=== PATIENT | male | born 1940 | race Caucasian/White ===

== ENCOUNTER 2016-10-01 09:32 | Inpatient (IN) ==
[2016-10-01] MEDS ORDERED: Ondansetron 4 MG/2 ML VIAL IV ONE (09:40)
[2016-10-01] MEDS ORDERED: *HR* Morphine 2 MG/ML SYRINGE IV ONE (09:40)
[2016-10-01] MEDS ORDERED: Aspirin 81 MG TAB.CHEW PO STA (09:41)
[2016-10-01] MEDS ORDERED: Nitroglycerin 0.4 MG TAB.SUBL SL ONE (09:46)
[2016-10-01 10:00] LABS: Basophils # 0.1 K/mcL (0.0-0.2); Basophils % 0.7 %; Eosinophils # 0.1 K/mcL (0.0-0.6); Eosinophils % 0.5 %; Hematocrit 41.2 % (37.5-50.1); Hemoglobin 13.9 g/dL (12.9-16.9); Immature Granulocytes % 1.1 % (0-4); Lymphocytes # 1.5 K/mcL (0.6-4.6); Lymphocytes % 13.1 %; Mean Corpuscular HGB Conc 33.7 g/dL (31.6-35.5); Mean Corpuscular Hemoglobin 28.1 pg (28.0-33.3); Mean Corpuscular Volume 83.4 fL (83.0-100.0); Monocytes # 0.8 K/mcL (0.0-1.3); Monocytes % 6.4 %; Neutrophils # 9.2 K/mcL (1.6-8.9); Platelet Count 398 K/mcL (140-400); Red Blood Count 4.94 M/mcL (4.19-5.50); Red Cell Distribution Width 13.6 % (11.5-14.5); Segmented Neutrophils % 78.2 %
[2016-10-01] MEDS ORDERED: Heparin 25,000 UNIT/500 ML D5W 25,000 UNIT/500 ML MLS IVC SCH (10:00)
[2016-10-01] MEDS ORDERED: *HR* Heparin 5,000 UNIT/ML VIAL IVP ONE (10:00)
[2016-10-01] MEDS ORDERED: *HR* Heparin 5,000 UNIT/ML VIAL IVP PRN ×2 (10:00)
--- NOTE | 2016-10-01 10:00 | Emergency Department Note ---
Disposition Clinical Impression: NSTEMI (non-ST elevated myocardial infarction) Disposition: Admitted As Inpatient Condition: Critical Referrals: NO,PCP [Primary Care Provider] - Forms: ED Satisfaction Letter Chest Pain HPI - General Chief Complaint: ED Chest Pain Stated Complaint: chest pain, SOB Time Seen by Provider: 10/01/16 09:33 Source: patient, family Limitations: no limitations Vital Signs Reviewed: Yes Nursing Notes Reviewed: Yes - History of Present Illness Pt complaint: chest pain Onset (ago): hour(s) (12) Duration: intermittent Onset: during rest Pain Location: substernal Severity scale (1-10): 8 Quality: heaviness Pain Radiation: LUE, neck, jaw/teeth Improves with: nothing Worsens with: nothing Associated symptoms: Reports: dyspnea Treatments prior to arrival chest pain: aspirin - Related Data Allergies Allergy/AdvReac Type Severity Reaction Status Date / Time No Known Allergies Allergy Verified 10/01/16 09:35 All systems ED: reviewed and negative except as stated. Constitutional: Denies: fever Respiratory: Reports: dyspnea Gastrointestinal: Denies: vomiting Chest Pain PMH - Past Medical History Medical history: Reports: aortic aneurysm, COPD, hypertension Psychiatric history: Reports: no psych history - Social History Smoking Status: Former smoker Alcohol use: Reports: none Physical Exam - General Limitations: no limitations General appearance: alert, in distress - Head Head exam: atraumatic, normocephalic, normal inspection - Eye Eye exam: Present: normal appearance, PERRL, EOMI - ENT ENT exam: normal exam, normal oropharynx, mucous membranes moist - Neck Neck exam: Present: normal inspection, full ROM, trachea midline - Chest Chest inspection: Present: normal inspection - Respiratory Respiratory exam: Present: accessory muscle use, prolonged expiratory phase - Cardiovascular Cardiovascular exam: Present: regular rate, normal rhythm, normal heart sounds - Abdominal Exam Abdominal exam: Present: soft, Non-Tender. Absent: tenderness, distention, guarding, rebound, rigidity - Back Exam Back exam: Present: normal inspection, full ROM. Absent: tenderness - Neurological Exam Neurological exam: Present: alert, oriented X3 - Psychiatric Psychiatric exam: Present: normal affect, normal mood - Skin Skin exam: Present: warm, dry, intact, normal color Course - Reevaluation(s) Reevaluation #1: Discussed with taxicab coordinator Dr. Hurd she would like us to repeat the EKG in 30 minutes Time: 10:00 Reevaluation #2: Dr. Crystal Hurd paged to update on positive troponin Time: 10:20 Reevaluation #3: PAIN IMPROVED STILL IN THE LEFT SHOULDER Time: 10:31 - Consultations Consultation #1: PATIENT WILL BE GOING TO THE [facility]CH[facility] Time: 10:40 Vital Signs Temperature 97.7 F 10/01/16 09:33 Pulse Rate 98 10/01/16 09:33 Respiratory Rate 20 10/01/16 09:33 Blood Pressure 152/93 10/01/16 09:33 O2 Sat by Pulse Oximetry 96 10/01/16 09:33 Temperature 97.7 F 10/01/16 09:33 Pulse Rate 98 10/01/16 10:35 Respiratory Rate 16 10/01/16 10:35 Blood Pressure 99/84 10/01/16 10:35 O2 Sat by Pulse Oximetry 97 10/01/16 10:35 Oxygen Delivery Oxygen Delivery Aerosol Mask Chest Pain - Differential Diagnosis Likely: stable angina, unstable angina pectoris, atypical chest pain, st elevation myocardial infraction, chest pain - Medical Records Medical records reviewed: Yes I reviewed the patient's medical records. - Lab Data Result diagrams: 10/01/16 05:51 10/01/16 05:51 Lab Results 10/01/16 10/01/16 10/01/16 Range/Units 05:51 05:51 05:51 WBC (4.3-11.1) K/mcL RBC (4.19-5.50) M/mcL Hgb (12.9-16.9) g/dL Hct (37.5-50.1) % MCV (83.0-100.0) fL MCH (28.0-33.3) pg MCHC (31.6-35.5) g/dL RDW (11.5-14.5) % Plt Count (140-400) K/mcL MPV (9.4-12.4) fL Immature Gran % (0-4) % Seg Neutrophils % % Lymphocytes % % Monocytes % % Eosinophils % % Basophils % % Neutrophils # (1.6-8.9) K/mcL Lymphocytes # (0.6-4.6) K/mcL Monocytes # (0.0-1.3) K/mcL Eosinophils # (0.0-0.6) K/mcL Basophils # (0.0-0.2) K/mcL PT 12.6 H (9.4-12.1) Seconds INR 1.2 APTT 28.8 (26.0-36.0) Seconds Sodium (136-145) mEq/L Potassium (3.5-4.5) mEq/L Chloride (98-109) mEq/L Carbon Dioxide (19-29) mEq/L BUN (8-26) mg/dL Creatinine (0.72-1.25) mg/dL Est GFR ( Amer) (> 60) Est GFR (Non-Af Amer) (> 60) BUN/Creatinine Ratio (6-26) Glucose (70-99) mg/dL Calculated Osmolality (280-300) Calcium (8.6-10.8) mg/dL Total Bilirubin 0.5 (0.2-1.2) mg/dL Direct Bilirubin 0.2 (0.0-0.5) mg/dL Indirect Bilirubin 0.3 (0.0-1.2) mg/dL AST 31 (5-34) Units/L ALT 13 (0-55) Units/L Alkaline Phosphatase 64 (38-126) Units/L Troponin I (0-0.03) ng/mL B-Natriuretic Peptide 550 H (0-100) pg/mL Serum Total Protein 6.7 (6.0-8.3) g/dL Albumin 2.8 L (3.5-5.0) g/dL Globulin 3.9 H (2.4-3.5) g/dL Albumin/Globulin Ratio 0.7 L (1.1-2.2) 10/01/16 10/01/16 10/01/16 Range/Units 05:51 05:51 05:51 WBC 11.7 H (4.3-11.1) K/mcL RBC 4.94 (4.19-5.50) M/mcL Hgb 13.9 (12.9-16.9) g/dL Hct 41.2 (37.5-50.1) % MCV 83.4 (83.0-100.0) fL MCH 28.1 (28.0-33.3) pg MCHC 33.7 (31.6-35.5) g/dL RDW 13.6 (11.5-14.5) % Plt Count 398 (140-400) K/mcL MPV 9.0 L (9.4-12.4) fL Immature Gran % 1.1 (0-4) % Seg Neutrophils % 78.2 % Lymphocytes % 13.1 % Monocytes % 6.4 % Eosinophils % 0.5 % Basophils % 0.7 % Neutrophils # 9.2 H (1.6-8.9) K/mcL Lymphocytes # 1.5 (0.6-4.6) K/mcL Monocytes # 0.8 (0.0-1.3) K/mcL Eosinophils # 0.1 (0.0-0.6) K/mcL Basophils # 0.1 (0.0-0.2) K/mcL PT (9.4-12.1) Seconds INR APTT (26.0-36.0) Seconds Sodium 133 L (136-145) mEq/L Potassium 4.0 (3.5-4.5) mEq/L Chloride 96 L (98-109) mEq/L Carbon Dioxide 26 (19-29) mEq/L BUN 9 (8-26) mg/dL Creatinine 0.70 L (0.72-1.25) mg/dL Est GFR ( Amer) > 60 (> 60) Est GFR (Non-Af Amer) > 60 (> 60) BUN/Creatinine Ratio 13 (6-26) Glucose 97 (70-99) mg/dL Calculated Osmolality 275 L (280-300) Calcium 9.0 (8.6-10.8) mg/dL Total Bilirubin (0.2-1.2) mg/dL Direct Bilirubin (0.0-0.5) mg/dL Indirect Bilirubin (0.0-1.2) mg/dL AST (5-34) Units/L ALT (0-55) Units/L Alkaline Phosphatase (38-126) Units/L Troponin I 3.34 H* (0-0.03) ng/mL B-Natriuretic Peptide (0-100) pg/mL Serum Total Protein (6.0-8.3) g/dL Albumin (3.5-5.0) g/dL Globulin (2.4-3.5) g/dL Albumin/Globulin Ratio (1.1-2.2) - Radiology Data Radiology results reviewed: Yes I reviewed the patient's radiology results. - EKG Data EKG attestation: Yes I reviewed and interpreted this EKG. EKG shows normal: sinus rhythm Rate: tachycardia (104) Rhythm: NSR Carroll/QRS: normal ST segment elevation in: v1, v2, v3 ST segment depression in: II, III, aVF, v4, v5, v6 Interpretation: other (I spoke with Dr. Crystal Hurd after obtaining the EKG she states there is ischemic changes but not ST elevation criteria for immediate catheterization will repeat EKG blood work and color back with results ) Critical Care Time Critical Care Time: Yes Total Critical Care Time: 40 Attestation: Critical care performed: Time is exclusive of separately billable procedures. Time includes: direct patient care, patient reassessment, coordination of patient care, interpretation of data (laboratory data, radiology data, and respiratory data), review of patient's medical records, medical consultation and documentation of patient care. Procedures included in critical care time: Procedures excluded from critical care time:
[2016-10-01] MEDS ORDERED: Nitroglycerin 0.4 MG TAB.SUBL SL PRN (10:01)
[2016-10-01] MEDS ORDERED: Ipratropium/Albuterol Neb 3 ML IH ONE (10:02)
[2016-10-01 10:03] LABS: INR 1.2; Prothrombin Time 12.6 Seconds (9.4-12.1)
[2016-10-01 10:06] LABS: Activated Partial Thrombo Time 28.8 Seconds (26.0-36.0)
[2016-10-01 10:12] LABS: Albumin 2.8 g/dL (3.5-5.0); Albumin/Globulin Ratio 0.7 (1.1-2.2); Bilirubin,Direct 0.2 mg/dL (0.0-0.5); Bilirubin,Indirect 0.3 mg/dL (0.0-1.2); Bilirubin,Total 0.5 mg/dL (0.2-1.2); Globulin 3.9 g/dL (2.4-3.5); Total Protein 6.7 g/dL (6.0-8.3)
[2016-10-01 10:13] LABS: BUN/Creatinine Ratio 13 (6-26); Blood Urea Nitrogen 9 mg/dL (8-26); Carbon Dioxide 26 mEq/L (19-29); Chloride 96 mEq/L (98-109); Glucose 97 mg/dL (70-99); Osmolality,Calculated 275 (280-300); Sodium 133 mEq/L (136-145); eGFR For African Americans > 60 (> 60); eGFR For Non-African Americans > 60 (> 60)
[2016-10-01] MEDS ORDERED: *HR* Ticagrelor 90 MG TABLET PO ONE (10:41)
[2016-10-01] MEDS ORDERED: 0.9 % Sodium Chloride 1,000 ML ONE ×2 (11:00→11:57)
--- NOTE | 2016-10-01 11:05 | Pre-Sedation Evaluation ---
Pre-sedation evaluation - Pre-sedation checklist Date of procedure: 10/01/16 Procedure: [facility] Recent Vitals: Last Vital Signs Temp 97.7 F 10/01/16 09:33 Pulse 93 10/01/16 10:49 Resp 16 10/01/16 10:52 BP 132/70 10/01/16 10:52 Pulse Ox 97 10/01/16 10:49 H&P (including ROS) documented in medical record: Yes Previous reaction to sedatives/anesthetics: No Dietary Status: unknown Airway Assessment: Patient can open mouth completely, TMJ function normal, Micrognathia (under-bite, receding chin) absent, Neck with adequate range of motion Dentition: poor dentition Possible difficult airway: No ASA Classification *see protocol: [id number] to any of the above to indicate emergent Plan of Care: Pt appropriate candidate for procedure/moderate/conscious sedation , Risks/benefits of procedure/sedation discussed w/ patient/family, If not NPO; Risk of intake outweiged by necessity to perform procedure
--- NOTE | 2016-10-01 11:10 | Cardiology Consult Note ---
Date of Encounter: 10/01/16 Time of Encounter: 11:06 Assessment and Plan (1) NSTEMI (non-ST elevated myocardial infarction) Current Visit: Yes Status: Acute Troponin 3.34 and EKG with ischemic changes. Trend troponins. Heparin gtt started. Start ASA, Statin, BB. Active chest and left shoulder pain. Nitro temporarily relieved chest pain, but it soon returned and shoulder pain persisted. Urgent LHC recommended for ongoing symptoms. R/B/A discussed and pt agrees to proceed. Check echo to evaluate structure and function. Check lipid panel. Further recommendations to follow once LHC and echo are completed/result. (2) Dyspnea Current Visit: Yes Status: Acute Likely multifactoral. Known COPD (prior tobacco abuse). In setting of NSTEMI. Suspect CHF component given orthopnea, PND. CXR with questionable trace bilateral pleural effusions. BNP 550. CXR also showed opacity in right upper lobe, which could reflect PNA. Check echo to evaluate structure and function. Qualifiers: Dyspnea type: unspecified Qualified Code(s): R06.00 - Dyspnea, unspecified (3) Essential hypertension Current Visit: Yes Status: Acute Start BB. Continue to monitor/adjust as necessary. (4) History of AAA (abdominal aortic aneurysm) repair Current Visit: Yes Status: Chronic Hx of AAA [place] [address] Daniels. No recent follow-up. Discussion w patient/family: The assessment and plan as outlined above was discussed with the patient and/or family members who expressed understanding and agreement. All questions were answered. Thank you for involving us in the care of your patient. Please call with any questions. I have discussed all the above with Dr. Crystal Hurd and will make changes as necessary. History of Present Illness Consult date: 10/01/16 Requesting physician: Shawn Hitchcock Consult reason: NSTEMI Chief complaint: Chest pain, dyspnea History of present illness: Mr. Simms is a 75 year old male with PMH of AAA with repair, COPD, former tobacco abuse, HTN that presented to ED for chest pain and dyspnea. Symptoms initially started 3-4 nights ago, occurring in the evening. This morning at 3AM symptoms worsened. He reports chest heaviness that radiated to both arms and into his neck and jaw. He reports dyspnea, orthopnea, cough that is occasionally productive. He was given nitro in the ED that initially helped with chest pain, but left shoulder pain persisted. Troponin found to be 3.34. BNP 550. EKG showed ischemic changes throughout, but no significant ST elevation. Diagnosed as NSTEMI. During transport to laboratory chemist, chest pain began again. He denies prior cardiac hx. Past Med Surg Social Fam HX - Past Medical History Medical history: aortic aneurysm, COPD, hypertension Psychiatric history: no psych history - Past Surgical History Surgical History: vascular surgery (AAA repair), other (cleft palate surgery) - Social History Smoking Status: Former smoker Smokeless Tobacco Status: No Alcohol use: none Medications and Allergies Allergies No Known Allergies Allergy (Verified 10/01/16 09:35) All Systems Review: A 10-system review of systems was performed and is negative for pertinent findings except as documented above in the HPI. - Cardiovascular Cardiovascular: as per HPI, chest pain at rest, chest pain with exertion, dyspnea at rest, dyspnea on exertion, radiating jaw, neck or arm pain, orthopnea , paroxysmal nocturnal dyspnea - Respiratory Respiratory: cough, dyspnea Physical Examination Vital Signs, Last 4 Hours Resp BP 10/01/16 10:52 16 132/70 Vital Signs Temp Pulse Resp BP Pulse Ox 10/01/16 10:52 16 132/70 10/01/16 10:49 93 18 132/70 97 10/01/16 10:35 98 16 99/84 97 10/01/16 10:22 20 98 10/01/16 09:39 98 10/01/16 09:33 97.7 F 98 20 152/93 96 Intake and Output 09/30/16 10/01/16 10/01/16 23:59 07:59 15:59 Other: Weight 67.585 kg Patient Weight 10/01/16 23:59 Weight 67.585 kg General: Conversant HEENT: Atraumatic, Normocephaly, Mucus Membranes Moist Neck: Normal carotid pulses Cardiac: Reg Rate and Rhythm, Normal S1 and S2, No Murmur Lungs: Other (diminished, coarse) Neuro: Alert and responsive, No focal deficits noted Abdomen: Soft, Non-Tender Skin: No rashes noted on visualized skin Musculoskeletal: No Chest Wall Tenderness Extremities: No Clubbing, No Cyanosis, No Edema, Normal Pulses Results 10/01/16 05:51 10/01/16 05:51 Short CBC 10/01/16 Range/Units 05:51 WBC 11.7 H (4.3-11.1) K/mcL Hgb 13.9 (12.9-16.9) g/dL Hct 41.2 (37.5-50.1) % Plt Count 398 (140-400) K/mcL Neutrophils # 9.2 H (1.6-8.9) K/mcL BMP 10/01/16 Range/Units 05:51 Sodium 133 L (136-145) mEq/L Potassium 4.0 (3.5-4.5) mEq/L Chloride 96 L (98-109) mEq/L Carbon Dioxide 26 (19-29) mEq/L BUN 9 (8-26) mg/dL Creatinine 0.70 L (0.72-1.25) mg/dL Glucose 97 (70-99) mg/dL Calcium 9.0 (8.6-10.8) mg/dL Cardiac Enzymes 10/01/16 Range/Units 05:51 Troponin I 3.34 H* (0-0.03) ng/mL Liver Function 10/01/16 Range/Units 05:51 Total Bilirubin 0.5 (0.2-1.2) mg/dL Direct Bilirubin 0.2 (0.0-0.5) mg/dL AST 31 (5-34) Units/L ALT 13 (0-55) Units/L Alkaline Phosphatase 64 (38-126) Units/L Albumin 2.8 L (3.5-5.0) g/dL Impressions Chest X-Ray 10/01/16 09:33 IMPRESSION: Patchy opacity in the right upper lobe, which may reflect pneumonia in the appropriate clinical setting. Given underlying emphysematous changes, this could also represent areas scarring. Questionable trace bilateral pleural effusions. D/ / Lisa Carreno MD / Lisa Carreno MD Interpreting Provider: Lisa Carreno MD Active Medications Heparin Sodium (Porcine) (Heparin) 4,000 unit IVP Q6HR PRN PRN Reason: SEE COMMENTS Stop: 04/02/17 10:01 Heparin Sodium (Porcine) (Heparin) 2,000 unit 30 unit/kg (2000 unit) IVP Q6H PRN PRN Reason: SEE COMMENTS Stop: 04/02/17 10:01 Heparin Sodium/Dextrose (Heparin 25,000 Unit/500 Ml D5w) 25,000 unit in 500 mls @ 16.22 mls/hr IVC .Q24H ASHWINI; 12 UNIT/KG/HR PRN Reason: Protocol Stop: 04/02/17 10:01 Last Admin: 10/01/16 10:29 Dose: 12 unit/kg/hr, 16.22 mls/hr Nitroglycerin (Nitroglycerin) 0.4 mg SL Q5MIN PRN PRN Reason: Chest Pain Stop: 04/02/17 10:02 - Imaging and Cardiology Chest Xray: report reviewed Cardiac cath: pending - EKG Interpretation EKG results cardiology: personally reviewed (SR, ischemic changes noted) Consult Discharge Plan - Plan Referrals: Mauro oJe MD [Primary Care Provider] -
[2016-10-01] MEDS ORDERED: *HR* FentaNYL (PF) 100 MCG/2 ML VIAL ONE (11:42)
[2016-10-01] MEDS ORDERED: *HR* Midazolam HCl 2 MG/2 ML VIAL ONE (11:42)
[2016-10-01] MEDS ORDERED: *HR* Heparin 10,000 UNIT/10 ML VIAL ONE (11:57)
[2016-10-01] MEDS ORDERED: Heparin 1,000 UNITS/500 mL NS 500 ML ONE (11:57)
[2016-10-01] MEDS ORDERED: Nitroglycerin 1,000 MCG/10 ML VIAL IV ONE (11:58)
--- NOTE | 2016-10-01 12:08 | Invasive Diagnostic Lab Proc ---
Name: Duong Simms Date of Study: 10/01/2016 Date: 1940 Ht: 70.9in Medical Record#: [id number] Age: 75 Wt: 149.03lb Gender: Male BSA: 1.86 Order #: [id number] BMI: 20.86 Physicians Procedure Physician: Crystal Hurd MD, [facility] Referring MD: Referring MD: Staff Name Position Time In Sites, Gwendolyn RT (R) Scrub 11:13 AM Jazzy Christensen RN Monitor 11:13 AM Derik Osborne RN Wine Bottle Inspector 11:13 AM Indications Indication Non-Stemi Procedures Performed Procedure L HRT ARTERY/VENTRICLE ANGIO PRQ CARD REVASC OK 1 VSL Pre-Procedure Checklist Informed consent is complete signed and on chart. H\\T\\P is on chart. ID band is on and ID verified with patient. Patient NPO for procedure The procedure was described for the patient and questions were answered. Blood Pressure: 128/86 ECG is on chart. Rhythm: Sinus Arrhythmia Plan of Care Patient will tolerate the procedure without complications. Adequate level of comfort will be maintained. Hemodynamics will remain stable Patient will recover from procedure without complications. Respiratory function will be maintained. Cardiac rhythm will remain stable. Patient temperature will be maintained. Patient and/or family have verbalized understanding of the procedure. Patient Education Chief Complaint/Reason for Test: Cardiac Cath Developmental Category: Geriatric (65+ years) Developmentally Appropriate for Age: Yes Learning Barriers: None Education Needs: Procedure Education Method: Verbal Information Taught: Cardiac Cath Educational Evaluation: Able to repeat information Intravenous Access Time IV Size Location DC'd Fluid/Drip Rate Units RN 10:57 AM 18g 1 07/28" Patent On Arrival Lt Wrist 0.9NaCl 25 ml/hr Derik Osborne RN Allergies No Known Allergies Vital Signs Time BP (mmHg) HR (bpm) O2 Sat. RR (bpm) LOC 11:11 AM / % 5 = Fully awake and oriented or at pre-proc level 11:11 AM / % 4 = Oriented but drowsy 11:26 AM / % 4 = Oriented but drowsy 11:06 AM 128 / 86 137 94 % 26 11:11 AM 111 / 72 97 96 % 16 11:16 AM 115 / 59 91 98 % 18 11:21 AM 121 / 75 96 99 % 16 11:23 AM 119 / 73 86 98 % 14 11:26 AM 90 / 49 91 95 % 15 11:27 AM 79 / 49 94 94 % 15 11:28 AM 86 / 55 94 93 % 15 11:29 AM 94 / 50 88 93 % 17 11:31 AM 96 / 43 93 93 % 16 11:34 AM 104 / 62 89 94 % 18 11:36 AM 101 / 61 95 94 % 16 11:41 AM 113 / 69 91 % 16 Procedural Medications Time Medication Dose Units Method Given By 11:10 AM Oxygen 2 L/min nasal cannula Derik Osborne RN 11:11 AM Lidocaine 16 ml Subcutaneous Crystal Hurd MD, [facility] 11:12 AM Versed 2 mg Intravenous Derik Osborne RN 11:18 AM Fentanyl 50 mcg Intravenous Derik Osborne RN 11:21 AM Heparin 2000 units Intravenous Derik Osborne RN 11:24 AM Nitroglycerin 200 mcg Intracoronary Crystal Hurd MD, [facility] 11:30 AM Nitroglycerin 200 mcg Intracoronary Crystal Hurd MD, [facility] ASA Classification: CLASS II- Mild systemic disease (i.e. well-controlled diabetes, hypertension, asthma, cigarette smoking) Alonso Score Preprocedure Postprocedure Activity 2- Moves 4 extremities sustained head lift Activity 2- Moves 4 extremities sustained head lift Circulation 2- SBP +/= 20 points of pre-anesthetic level Circulation 2- SBP +/= 20 points of pre-anesthetic level Consciousness 2- Awake and alert oriented x 3 Consciousness 2- Awake and alert oriented x 3 O2 Saturation 2- Able to maintain O2 satruation of 92% on room air O2 Saturation 2- Able to maintain O2 satruation of 92% on room air Respiratory 2- Able to deep breathe and cough well Respiratory 2- Able to deep breathe and cough well Total Score 10 Total Score 10 Contrast Agent: Isovue Diagnostic Contrast: 125 ml Total Contrast: 125 ml Fluoro Dose: 280 mGy Activated Clotting Time Time Seconds to Clot 11:20 AM 180 11:50 AM 259 Procedure Log Time Note Enter By 10:53 AM CathStat 11:05 AM Case Start 11:05 AM Vitals capture started with the following parameters, Patient=Adult, Interval=5 min, Initial Vuxgsaph=375 mmHg, Deflation Rate=5 mmHg, Cuff placed on Left Arm 11:06 AM VS=598 bpm, WHSQ=431/86 mmhg, SpO2=94.0 %, Resp=26 B/min, Comment=Sinus Rhythm 11:09 AM Recorded ECG: HR=91 Condition=Condition 1 11:10 AM 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 well-controlled diabetes, hypertension, asthma, cigarette smoking) [facility] 11:10 Meet and ross completed [facility] 11:10 AM Sign in performed according to hospital policy. [facility] 11:10 Procedure start 11: [facility] : AM Time: 11: Oxygen on at 2 L/min per nasal cannula by Derik Osborne RN [facility] : AM Time: 11:10 Patient comfortable and pain free: Yes [facility] : AM Time: :LOC: 5 = Fully awake and oriented or at pre-proc level [facility] : HR=97 bpm, NLIB=360/72 mmhg, SpO2=96.0 %, Resp=16 B/min, Comment=Sinus Rhythm 11:11 AM Clinical Presentation: Non-STEMI [facility] : Time out performed according to hospital policy [facility] : AM Time: : 16 ml to Subcutaneous Given by Crystal Hurd MD, [facility] : AM Time: : 16 ml to 2% Lidocaine Subcutaneous Given by Crystal Hurd MD, [facility] : AM Access obtained by percutaneous puncture. 5Fr 10cm Terumo [place] sheath placed in right Femoral artery. [id number] [facility] 11: AM Time: :12 Versed 2 mg Intravenous Given by Derik Osborne RN [facility] : AM Pressure channel 1 zero failed. 11:12 AM 5Fr FL 4 catheter inserted over the wire [facility] :13 AM Gwendolyn Rendon RT (R) Position: Scrub Time in: : [facility] 11:13 AM Jazzy Christensen RN Position: Monitor [facility]: [facility] AM Derik Osborne RN Position: Wine Bottle Inspector [facility]: 11:13 [facility] 11:13 AM Recorded Pressure: Ao, HR=89, Condition=Condition 1 (Aorta) Ao 88/60/74 11:13 AM Case Delayed No [facility] 11:14 AM LCA angiography performed in multiple views. [facility] 11:15 AM PCI Status Urgent [facility] 11:15 AM Inflation device was opened. [facility] 11:15 AM [facility]atheter [facility] 11:15 AM 5Fr FR 4 catheter inserted over the wire [facility] 11:16 AM Coronary Dominance: right [facility] 11:16 AM RCA angiography performed in multiple views. [facility] 11:16 AM HR=91 bpm, HBIM=222/59 mmhg, SpO2=98.0 %, Resp=18 B/min, Comment=Sinus Rhythm 11:16 AM Catheter removed [facility] 11:17 AM Lesion found in Proximal LAD. Pre Stenosis: 99 Pre KODY Flow: 1 [facility] 11:17 AM Sheath exchanged for a 6 Fr 11 cm Cordis Cindy sheath [id number] [facility] 11:17 AM 6Fr XB LAD 3.5 [place] Bright-Tip guide catheter was used to cannulate the PCI vessel successfully. reused? No [facility] 11:17 AM .014 Prowater 180cm guide wire across target lesion- successful. reused? No [facility] 11:18 AM 2.5 mm x 15 mm Emerge Monorail balloon across target lesion- successful. reused? No [facility] 11:18 AM Time: 11:18 Fentanyl 50 mcg Intravenous Given by Derik Osborne RN [facility] 11:18 AM act drawn [facility] 11:18 AM PCI Status Urgent [facility] 11:18 AM PCI Indication: PCI for high risk Non-STEMI or unstable angina [facility] 11:19 AM Recorded Pressure: Ao, HR=97, Condition=Condition 1 (Aorta) Ao 129/68/95 11:20 AM At 11:20 the ACT was 180 seconds. [facility] 11:21 AM Time: 11:21 Heparin 2000 units Intravenous Given by Derik Osborne RN [facility] 11:21 AM HR=96 bpm, HFIX=832/75 mmhg, SpO2=99.0 %, Resp=16 B/min, Comment=Sinus Rhythm 11:21 AM Recorded Pressure: Ao, HR=91, Condition=Condition 1 (Aorta) Ao 110/66/86 11:22 AM Balloon inflated @ 8 angela for 20 seconds [facility] 11: AM Recorded Pressure: Ao, HR=93, Condition=Condition 1 (Aorta) Ao 100/67/83 11: AM Balloon inflated @ 10 angela for 20 seconds [facility] 11: AM NIBP STAT measurement started. 11:23 AM HR=86 bpm, NBUG=577/73 mmhg, SpO2=98.0 %, Resp=14 B/min, Comment=Sinus Rhythm 11: AM Time: 11:24 Nitroglycerin 200 mcg Intracoronary Given by Crystal Hurd MD, [facility] 11: AM Time: 11:11 Patient comfortable and pain free: Yes [facility] : AM Time: 11:11LOC: 4 = Oriented but drowsy [facility] 11: AM HR=91 bpm, NIBP=90/49 mmhg, SpO2=95.0 %, Resp=15 B/min, Comment=Sinus Rhythm 11: AM NIBP STAT measurement started. 11:27 AM HR=94 bpm, NIBP=79/49 mmhg, SpO2=94.0 %, Resp=15 B/min, Comment=Sinus Rhythm 11: AM Balloon catheter removed intact. [facility] 11: AM 3.5mm x 20mm Synergy drug-eluting stent across target lesion- successful Lot #[id number] [facility] 11:28 AM NIBP STAT measurement started. 11:28 AM Recorded Pressure: Ao, HR=88, Condition=Condition 1 (Aorta) Ao 72/54/63 11:28 AM HR=94 bpm, NIBP=86/55 mmhg, SpO2=93.0 %, Resp=15 B/min, Comment=Sinus Rhythm 11:28 AM Stent deployed @ 16 angela for 30 seconds [facility] 11:29 AM NIBP STAT measurement started. 11:29 AM Stent balloon reinflated @ 20 angela for 15 seconds [facility] 11:29 AM HR=88 bpm, NIBP=94/50 mmhg, SpO2=93.0 %, Resp=17 B/min, Comment=Sinus Rhythm 11:29 AM Recorded Pressure: Ao, HR=88, Condition=Condition 1 (Aorta) Ao 78/52/65 11:30 AM Time: 11:30 Nitroglycerin 200 mcg Intracoronary Given by Crystal Hurd MD, [facility] 11:31 AM HR=93 bpm, NIBP=96/43 mmhg, SpO2=93.0 %, Resp=16 B/min, Comment=Sinus Rhythm 11:31 AM Guide catheter removed intact. [facility] 11:32 AM Stent delivery system removed intact. [facility] 11:32 AM Guide wire removed intact. [facility] 11:33 AM 5Fr Pigtail catheter inserted over the wire [facility] 11:33 AM Pressure channel 1 zeroed. 11:33 AM Recorded Pressure: LV, HR=94, Condition=Condition 1 (Left Ventricle) LV 80/18/24 11:33 AM Catheter selectively placed in left ventricle [facility] 11:33 AM Bolus angiogram of left Ventricle complete: 8 ml/sec for a total of 24 mls [facility] 11:34 AM Recorded Pressure: LV, Ao, HR=91, Condition=Condition 1 (Left Ventricle) LV 89/35/48, (Aorta) Ao 87/63/75 11:34 AM NIBP STAT measurement started. 11:34 AM Catheter removed [facility] 11:34 AM Bolus angiogram of right Femoral complete: 4 ml/sec for a total of 7 mls [facility] 11:34 AM HR=89 bpm, ZPKJ=657/62 mmhg, SpO2=94.0 %, Resp=18 B/min, Comment=Sinus Rhythm 11:35 AM Procedure completed at 11:35 [facility] 11:36 AM HR=95 bpm, ZVGY=344/61 mmhg, SpO2=94.0 %, Resp=16 B/min, Comment=Sinus Rhythm 11:38 AM Sign out completed: Radiation Dose 280 mGy Fluoro Time: 4.7 Isovue 370 - 200ml contrast 125 ml given by Crystal Hurd MD, [facility]. Complications: NoneCardiac Rehab Consult needed: YesConfirmed administered medications: Yes [facility] 11:41 AM Time: 11:LOC: 4 = Oriented but drowsy [facility] 11:41 AM HR=91 bpm, GFZA=318/69 mmhg, Resp=16 B/min 11:46 AM Isovue 370 - 200ml,1 Bottle(s) used. [facility] 11:46 AM Sheath left in place to be pulled on floor/holding area [facility] 11:47 AM Post ECG Sinus Arrhythmia [facility] 11:47 AM Post Blood Pressure 113/69 [facility] 11:47 AM 11:47 Post Pulses Bilateral DP \\T\\ PT 1+ [facility] 11:47 AM Information taught Cardiac Cath and PCI [facility] 11:47 AM Education needs Procedure, Plan of Care, and Responsibilities of Patient in Care [facility] 11:47 AM Learning barriers :None [facility] 11:47 AM Education Methods Verbal [facility] 11:47 AM Education evaluation Able to repeat information [facility] 11:48 AM Site status No bleeding/hematoma - Rt Groin as reported by Sites, Gwendolyn RT (R) at 11:48 [facility] 11:48 AM [facility]ps[facility] 11:48 AM Plavix, Effient or Brilinta given No, given [facility] ED [facility] 11:48 AM Delay to floor No [facility] 11:48 AM Patient out of room: 11:48 [facility] 11:49 AM Family placed in holding area. [facility] 11:49 AM Coronary Dominance: right [facility] 11:49 AM Lesion found in LMCA. Pre Stenosis: 30 Pre KODY Flow: [facility] 11:50 AM Lesion found in Proximal Circumflex. Pre Stenosis: 30 Pre KODY Flow: [facility] 11:50 AM Left Main Coronary Artery with 30% stenosis [facility] 11:50 AM At 11:50 the ACT was 259 seconds. [facility] 11:51 AM Proximal Left Anterior Descending Coronary Artery with 99% stenosis. If graft is supplying this territory, 0 % stenosis. [facility] 11:51 AM Circumflex, Obtuse Marginal, Left Posterior Descending, and Left Posterolateral Coronary Arteries with 30 % stenosis. If graft is supplying this area, 0 % stenosis [facility] 11:55 AM Report given to Mariola FONTAINE Pt taken to ICU Room #11. 11:54 [facility] 11:56 AM Complications: None [facility] 11:56 AM Patient out of room: 11:56 [facility] Complications Complication None None Hemodynamics Pressures Site Systolic/A Wave Diastolic/V Wave Mean AO 88 60 74 AO 129 68 95 AO 110 66 86 AO 100 67 83 AO 72 54 63 AO 78 52 65 LV 80 18 24 LV 89 35 48 AO 87 63 75 Post Procedure Information Blood Pressure: 113/69 mmHg Rhythm: Sinus Arrhythmia Post procedural instructions were given Closure Device Time Device Success/Fail 10/01/2016 11:41:00 AM Manual Compression - sheath to be pulled in ICU when appropriate Site Checks Time Location Status Staff Sheath In? Note 11:48 AM Rt Groin No bleeding/hematoma Sites, Gwendolyn RT (R) Pulses Time Site Pre-Procedure Post-Procedure Note 11:47:00 AM Bilateral DP \\T\\ PT 1+ 10/01/2016 10:47:00 AM Bilateral DP \\T\\ PT 1+ Updated by Jennifer Marte RN on 10/01/2016 12:02:47 PM electronically signed on 10/01/2016 12:03:42 PM with status of Final
[2016-10-01] MEDS ORDERED: Doxycycline 100 MG in 0.9 % Sodium Chloride Mini Bag 100 ML IVPB ONE (14:03)
[2016-10-01] MEDS ORDERED: Albuterol 2.5 MG/3 ML NEBULIZER IH PRN (14:07)
--- NOTE | 2016-10-01 14:56 | Internal Medicine Consult Note ---
<Gwendolyn Raya - Last Filed: 10/02/16 01:01> Date of Encounter: 10/01/16 Time of Encounter: 14:51 - Assessment and Plan (1) NSTEMI (non-ST elevated myocardial infarction) Current Visit: Yes Status: Acute Assessment and plan: Patient was taken to the director of labor relations and received a stent to the LAD for a 99% lesion. Aspirin, plavix, BB per Cardiology service. (2) COPD (chronic obstructive pulmonary disease) Current Visit: Yes Status: Acute Assessment and plan: Acute exacerbation Patient with diagnosis of COPD, on 2L NC at home. Patient reports he has had a productive cough since June with thick, greenish yung sputum. He reports his PCP has had him on 2 rounds of steroid tapers and antibiotics. CXR showed Patchy opacity in Right upper lobe and emphysematous changes. On exam, patient has diffuse wheezing bilaterally and rhonchi on the right. duoneb treatments QID albuterol nebulizer Q2 prn titrate oxygen to maintain O2 sat > 92% mucinex BID Solu-medrol 80mg IVP BID Qualifiers: COPD type: emphysema Emphysema type: unspecified Qualified Code(s): J43.9 - Emphysema, unspecified (3) Community acquired pneumonia Current Visit: Yes Status: Acute Assessment and plan: CXR shows Patchy opacity in right upper lobe, which could represent pneumonia or emphysematous scarring. CT Chest without contrast to further clarify IVPB ceftriaxone and Doxycycline as patient has had recent rounds of Azithromycin. duoneb treatments QID albuterol Q2 prn titrate oxygen to maintain O2 sat > 92% (4) Essential hypertension Current Visit: Yes Status: Acute Assessment and plan: Continue lisinopril and carvedilol. (5) DVT prophylaxis Current Visit: Yes Status: Acute Assessment and plan: anti-embolic stockings Lovenox 40mg SQ daily Internal Medicine - CN: HPI - Data of Consult Patient: new to practice Consult date: 10/01/16 Requesting Physician: Crystal Hurd - Consult Narrative Reason for consult: Management of COPD and possible pneumonia History of present illness: Mr. Simms is a 75 year old male with hypertension, COPD, history of aortic aneurysm status post repair, who presented to the emergency department this morning with complaints of severe chest pain. He reports he has been having chest pain on and off, reports this incident will come from sleep at 3 AM that it was severe radiating down both arms accompanied by sweats and chills, and numbness and tingling in both arms. Pain was somewhat relieved by aspirin and nitroglycerin given in emergency department. He reports he has been feeling more short of breath recently requiring more oxygen. He reports he has had a cough since June, productive of greenish bustillos thick sputum. He denies any fever, and reports only chills and sweats during his episodes of chest pain. He denies any lightheadedness, or dizziness. He reports a poor appetite, but denies any nausea, vomiting, abdominal pain. Evaluation in the emergency department was significant for EKG with ischemic changes and elevated troponin at 3.3 for elevated BNP at 550. Cardiology was consulted and Dr. Hurd took him to the Radiology Physician Assistant where they stented a 99% LAD lesion. On my exam he is alert and oriented, resting comfortably, reporting he feels much better after the catheter. His lungs have bilateral wheezes and rhonchi more so on the right. Heart has regular rate and rhythm. Past Med Surg Social Fam HX - Past Medical History Medical history: aortic aneurysm, COPD, hypertension Psychiatric history: no psych history - Past Surgical History Surgical History: angioplasty/stent, vascular surgery, other - Social History Smoking Status: Former smoker (39 pack year history) Smokeless Tobacco Status: No Alcohol use: none Drug use: none - Family History Mother Age: 60 Living Status: Cause of : cancer - Constitutional Constitutional: chills, no fever(s), no night sweats - EENT Eyes: no change in vision Ears: no ear pain, no tinnitus Nose, mouth and throat: no nasal congestion, no nasal discharge, no sinus pain, no sore throat - Cardiovascular Cardiovascular ROS IM: chest pain, diaphoresis, dyspnea, dyspnea on exertion, no lightheadedness, no palpitations, no syncope - Respiratory Respiratory: cough, dyspnea, dyspnea on exertion, excessive phlegm production, change in phlegm color - Gastrointestinal Gastrointestinal: no constipation, no diarrhea, no hematemesis, no hematochezia , no melena, no nausea, no vomiting - Genitourinary Genitourinary ROS male: no dysuria, no hematuria - Musculoskeletal Musculoskeletal ROS IM: no numbness - Integumentary Integumentary IM: no non-healing lesions, no rash - Neurological Neurological ROS: no confusion, no dizziness, no focal weakness - Hematologic/Lymphatic Hematologic/Lymphatic: no easy bruising Internal Medicine - CN: Meds Albuterol Sulfate [Ventolin Hfa] 2 puff IH Q4H PRN 10/01/16 [History] Finasteride [Proscar] 5 mg PO DAILY 10/01/16 [History] Fluticasone/Salmeterol [Advair 250-50 Diskus] 1 each IH BID 10/01/16 [History] Hydrochlorothiazide 12.5 mg PO DAILY 10/01/16 [History] Losartan Potassium [Cozaar] 100 mg PO DAILY 10/01/16 [History] Allergies No Known Allergies Allergy (Verified 10/01/16 09:35) Internal Medicine - CN: Exam - Constitutional Vitals: Temp Pulse Resp BP Pulse Ox 97.7 F 77 20 120/80 97 10/01/16 12:06 10/01/16 13:17 10/01/16 13:00 10/01/16 13:00 10/01/16 13:14 General appearance IM: Present: A&O X 3, pleasant, no acute distress - Head Head exam: Present: atraumatic, normocephalic - Eye Eye exam: Present: PERRL, conjuntiva pink, sclera anicteric Pupils: Present: PERRL - ENT ENT exam: Present: mucous membranes moist - Neck Neck exam general surgery: Present: supple, trachea midline - Respiratory Respiratory exam: Present: rhonchi (right > left), wheezes (bilaterally) - Cardiovascular Cardiovascular exam IM: Present: RRR, +S1, +S2. Absent: clicks, diastolic murmur, gallop, systolic murmur - GI/Abdominal GI/Abdominal exam IM: Present: normal bowel sounds, soft. Absent: tenderness, no peritoneal signs - Extremities Exam Extremities exam IM: Present: radial pulses palpable and symetrical. Absent: pedal edema, warm Additional comments: right groin dressing in place - Neurological Exam Neurological exam: Present: CN II-XII intact, oriented X3, strengths equal and symetr throughout. Absent: facial droop, speech deficit - Skin Skin exam IM: Present: dry, intact Internal Medicine - CN: Reslt - Labs CBC & Chem 7: 10/01/16 05:51 10/01/16 05:51 Labs: Cardiac Enzymes 10/01/16 Range/Units 12:45 Troponin I 4.08 H* (0-0.03) ng/mL All Lab Results (24 Hours) 10/01/16 10/01/16 10/01/16 Range/Units 05:51 05:51 05:51 WBC (4.3-11.1) K/mcL RBC (4.19-5.50) M/mcL Hgb (12.9-16.9) g/dL Hct (37.5-50.1) % MCV (83.0-100.0) fL MCH (28.0-33.3) pg MCHC (31.6-35.5) g/dL RDW (11.5-14.5) % Plt Count (140-400) K/mcL MPV (9.4-12.4) fL Immature Gran % (0-4) % Seg Neutrophils % % Lymphocytes % % Monocytes % % Eosinophils % % Basophils % % Neutrophils # (1.6-8.9) K/mcL Lymphocytes # (0.6-4.6) K/mcL Monocytes # (0.0-1.3) K/mcL Eosinophils # (0.0-0.6) K/mcL Basophils # (0.0-0.2) K/mcL PT 12.6 H (9.4-12.1) Seconds INR 1.2 APTT 28.8 (26.0-36.0) Seconds Sodium (136-145) mEq/L Potassium (3.5-4.5) mEq/L Chloride (98-109) mEq/L Carbon Dioxide (19-29) mEq/L BUN (8-26) mg/dL Creatinine (0.72-1.25) mg/dL Est GFR ( Amer) (> 60) Est GFR (Non-Af Amer) (> 60) BUN/Creatinine Ratio (6-26) Glucose (70-99) mg/dL POC Glucose (58-89) Calculated Osmolality (280-300) Calcium (8.6-10.8) mg/dL Total Bilirubin 0.5 (0.2-1.2) mg/dL Direct Bilirubin 0.2 (0.0-0.5) mg/dL Indirect Bilirubin 0.3 (0.0-1.2) mg/dL AST 31 (5-34) Units/L ALT 13 (0-55) Units/L Alkaline Phosphatase 64 (38-126) Units/L Troponin I (0-0.03) ng/mL B-Natriuretic Peptide 550 H (0-100) pg/mL Serum Total Protein 6.7 (6.0-8.3) g/dL Albumin 2.8 L (3.5-5.0) g/dL Globulin 3.9 H (2.4-3.5) g/dL Albumin/Globulin Ratio 0.7 L (1.1-2.2) 10/01/16 10/01/16 10/01/16 Range/Units 05:51 05:51 05:51 WBC 11.7 H (4.3-11.1) K/mcL RBC 4.94 (4.19-5.50) M/mcL Hgb 13.9 (12.9-16.9) g/dL Hct 41.2 (37.5-50.1) % MCV 83.4 (83.0-100.0) fL MCH 28.1 (28.0-33.3) pg MCHC 33.7 (31.6-35.5) g/dL RDW 13.6 (11.5-14.5) % Plt Count 398 (140-400) K/mcL MPV 9.0 L (9.4-12.4) fL Immature Gran % 1.1 (0-4) % Seg Neutrophils % 78.2 % Lymphocytes % 13.1 % Monocytes % 6.4 % Eosinophils % 0.5 % Basophils % 0.7 % Neutrophils # 9.2 H (1.6-8.9) K/mcL Lymphocytes # 1.5 (0.6-4.6) K/mcL Monocytes # 0.8 (0.0-1.3) K/mcL Eosinophils # 0.1 (0.0-0.6) K/mcL Basophils # 0.1 (0.0-0.2) K/mcL PT (9.4-12.1) Seconds INR APTT (26.0-36.0) Seconds Sodium 133 L (136-145) mEq/L Potassium 4.0 (3.5-4.5) mEq/L Chloride 96 L (98-109) mEq/L Carbon Dioxide 26 (19-29) mEq/L BUN 9 (8-26) mg/dL Creatinine 0.70 L (0.72-1.25) mg/dL Est GFR ( Amer) > 60 (> 60) Est GFR (Non-Af Amer) > 60 (> 60) BUN/Creatinine Ratio 13 (6-26) Glucose 97 (70-99) mg/dL POC Glucose (58-89) Calculated Osmolality 275 L (280-300) Calcium 9.0 (8.6-10.8) mg/dL Total Bilirubin (0.2-1.2) mg/dL Direct Bilirubin (0.0-0.5) mg/dL Indirect Bilirubin (0.0-1.2) mg/dL AST (5-34) Units/L ALT (0-55) Units/L Alkaline Phosphatase (38-126) Units/L Troponin I 3.34 H* (0-0.03) ng/mL B-Natriuretic Peptide (0-100) pg/mL Serum Total Protein (6.0-8.3) g/dL Albumin (3.5-5.0) g/dL Globulin (2.4-3.5) g/dL Albumin/Globulin Ratio (1.1-2.2) 10/01/16 10/01/16 Range/Units 12:11 12:45 WBC (4.3-11.1) K/mcL RBC (4.19-5.50) M/mcL Hgb (12.9-16.9) g/dL Hct (37.5-50.1) % MCV (83.0-100.0) fL MCH (28.0-33.3) pg MCHC (31.6-35.5) g/dL RDW (11.5-14.5) % Plt Count (140-400) K/mcL MPV (9.4-12.4) fL Immature Gran % (0-4) % Seg Neutrophils % % Lymphocytes % % Monocytes % % Eosinophils % % Basophils % % Neutrophils # (1.6-8.9) K/mcL Lymphocytes # (0.6-4.6) K/mcL Monocytes # (0.0-1.3) K/mcL Eosinophils # (0.0-0.6) K/mcL Basophils # (0.0-0.2) K/mcL PT (9.4-12.1) Seconds INR APTT (26.0-36.0) Seconds Sodium (136-145) mEq/L Potassium (3.5-4.5) mEq/L Chloride (98-109) mEq/L Carbon Dioxide (19-29) mEq/L BUN (8-26) mg/dL Creatinine (0.72-1.25) mg/dL Est GFR ( Amer) (> 60) Est GFR (Non-Af Amer) (> 60) BUN/Creatinine Ratio (6-26) Glucose (70-99) mg/dL POC Glucose 84 (58-89) Calculated Osmolality (280-300) Calcium (8.6-10.8) mg/dL Total Bilirubin (0.2-1.2) mg/dL Direct Bilirubin (0.0-0.5) mg/dL Indirect Bilirubin (0.0-1.2) mg/dL AST (5-34) Units/L ALT (0-55) Units/L Alkaline Phosphatase (38-126) Units/L Troponin I 4.08 H* (0-0.03) ng/mL B-Natriuretic Peptide (0-100) pg/mL Serum Total Protein (6.0-8.3) g/dL Albumin (3.5-5.0) g/dL Globulin (2.4-3.5) g/dL Albumin/Globulin Ratio (1.1-2.2) - ABG Interpretation ABG results: PT/INR, D-dimer PT 12.6 Seconds (9.4-12.1) H 10/01/16 05:51 Consult Discharge Plan - Plan Referrals: Mauro Joe MD [Primary Care Provider] - <Param Irwin - Last Filed: 10/02/16 09:08> Internal Medicine - CN: HPI - Data of Consult Requesting Physician: Crystal Hurd - Consult Narrative History of present illness: Mr. Simms is a 75 year old male Internal Medicine - CN: Exam - Constitutional Vitals: Temp Pulse Resp BP Pulse Ox 97.6 F 73 18 112/66 96 10/02/16 08:14 10/02/16 06:05 10/02/16 06:22 10/02/16 06:05 10/02/16 06:22 Internal Medicine - CN: Reslt - Labs CBC & Chem 7: 10/02/16 04:01 10/02/16 04:01 Labs: Short CBC 10/02/16 Range/Units 04:01 WBC 7.5 (4.3-11.1) K/mcL Hgb 12.4 L D (12.9-16.9) g/dL Hct 38.4 (37.5-50.1) % Plt Count 371 (140-400) K/mcL Neutrophils # 6.9 (1.6-8.9) K/mcL BMP 10/02/16 04:01 Sodium 134 L Potassium 4.3 Chloride 98 Carbon Dioxide 27 BUN 10 Creatinine 0.75 Glucose 157 H Calcium 9.0 Cardiac Enzymes 10/01/16 Range/Units 12:45 Troponin I 4.08 H* (0-0.03) ng/mL - ABG Interpretation ABG results: PT/INR, D-dimer PT 12.6 Seconds (9.4-12.1) H 10/01/16 05:51 - Impressions Impressions Chest CT 10/01/16 20:00 IMPRESSION: 1. Patchy reticulonodular opacities in the right middle and upper lobes and to a lesser degree the lingula compatible with an infectious or inflammatory process. Chronic scarring is also possible. 2. Moderate to severe emphysematous changes. 3. Coronary artery atherosclerotic vascular disease. D/ / Angelo Osborne MD / Angelo Osborne MD Interpreting Provider: Angelo Osborne MD - Attending Attestation I examined this patient and my medical decision-making was reviewed with the MANAGER ZONE/PA/Advanced Practice Nurse/Resident Physician. I agree with the documented findings, disposition and treatment plan as described except to the extent set forth below. On exam the patient is in no acute distress. Heart is regular S1-S2. Lung exam with audible wheezes. His EKG per my review shows normal sinus rhythm at 81 bpm Q waves in V1 and V2 and T-wave version in V3 and V6. Plan: We will obtain blood culture, will obtain CT of the chest to better describe the x-ray findings. We will treat COPD exacerbation with IV antibiotics IV steroids and inhaled bronchodilators. Resume Symbicort. Resume oral antihypertensive medication regimen.
[2016-10-01] MEDS: Ipratropium/Albuterol Neb 3 ML IH SCH ×2 (16:08→23:47)
--- NOTE | 2016-10-01 16:48 | Invasive Diagnostic Lab ---
Name: Duong Simms Date of Study: 10/01/2016 Date: 1940 Ht: 180.0 cm /70.9 in Medical Record#: [id number] Age: 75 Wt: 67.6 kg / 149.03 lb Account/Order#: [id number] Gender: Male BSA: 1.86 Order #: [id number] Fluoro Dose: 280 mGy BMI: 20.86 Procedure Physician: Crystal Hurd MD, [facility] Referring MD: Referring MD: Procedures Performed: LEFT HEART CATH Stent w/ PTCA Single Major Vessel Indications: Non-Stemi Impressions: Single vessel coronary artery disease. There is moderate to severe LV Dysfunction EF 30-35% Patient had successful PTCA/Drug-Eluting Stent placement in the proximal LAD. Recommendations: Dual antiplatelet therapy. Optimal medical therapy of patient's disease. Aggressive risk factor modification. History/Risk Factors: Alcohol use AAA repair Hypertension Current/Recent Smoker Chronic Lung Disease Procedure Access obtained in the right Femoral artery by percutaneous puncture Patient had successful PTCA/Drug-Eluting Stent placement in the proximal LAD. Complications: None, None Contrast: Isovue 125ml Closure Device: Manual Compression Hemodynamics: Pressures Site Systolic/ A Wave Diastolic/ V Wave End Diastolic/ Mean HR AO 88 60 74 89 AO 129 68 95 97 AO 110 66 86 91 AO 100 67 83 93 AO 72 54 63 88 AO 78 52 65 88 LV 80 18 24 94 LV 89 35 48 94 AO 87 63 75 87 LV Ventriculography Ejection Method: LV Gram 30-35% Wall Motion: SKAGGS Anterobasal Normal Anterolateral Severe Hypokinesis Apical: Severe Hypokinesis Inferoapical Severe Hypokinesis Inferobasal Normal Coronary Dominance: right Lesion Findings/Interventions * Left Main Coronary Artery There is a 30% stenosis in the LMCA. * Left Anterior Descending There is a 20 mm long, 99% stenosis in the Proximal LAD. The lesion has a KODY flow of 1. An intervention was performed on the Proximal LAD with a final stenosis of 0%. There were no lesion complications. The final KODY flow was 3. * Circumflex There is a 30% stenosis in the Proximal Circumflex. * Right Coronary Artery The RCA is diffusely ectatic and aneurysmal. Diffuse 30% stenosis throughout prox/mid RCA. Interventional Device(s) Vessel Segment Type Name Diameter (mm) Length (mm) Proximal LAD Balloon Emerge Monorail 2.5 15 Proximal LAD Drug Eluting Stent Synergy 3.5 20 Updated by Crystal Hurd MD, FACC on 10/01/2016 4:43:55 PM Crystal Hurd MD, FACC electronically signed on 10/01/2016 4:45:49 PM with status of Final
--- NOTE | 2016-10-01 18:08 | Electrocardiograph Report ---
[address] [place], [place] [address] Test Date: 2016-10-01 Pat Name: Duong Simms Department: 109 Room: 11 Gender: Food Aide: : 1940 Requested By: Shawn Hitchcock Order Number: [id number] Reading MD: Crystal Hurd Measurements Intervals Gaffney Rate: 81 P: 79 MT: 155 QRS: 70 QRSD: 97 T: 96 QT: 357 QTc: 395 Interpretive Statements SINUS RHYTHM WITH OCCASIONAL SUPRAVENTRICULAR PREMATURE COMPLEXES SEPTAL MYOCARDIAL INFARCTION, OF INDETERMINATE AGE MODERATE T-WAVE ABNORMALITY, CONSIDER ANTEROLATERAL ISCHEMIA Electronically Signed On 10-01-2016 18:07:03 EST by Crystal Hurd
[2016-10-01] MEDS: methylPREDNISolone 125 MG/2 ML VIAL IVP SCH (18:10)
[2016-10-02 04:28] LABS: Basophils % 0.4 %; Hematocrit 38.4 % (37.5-50.1); Hemoglobin 12.4 g/dL (12.9-16.9); Immature Granulocytes % 1.6 % (0-4); Lymphocytes # 0.4 K/mcL (0.6-4.6); Lymphocytes % 5.7 %; Mean Corpuscular HGB Conc 32.3 g/dL (31.6-35.5); Mean Corpuscular Hemoglobin 26.8 pg (28.0-33.3); Mean Corpuscular Volume 83.1 fL (83.0-100.0); Mean Platelet Volume 8.9 fL (9.4-12.4); Monocytes # 0.1 K/mcL (0.0-1.3); Monocytes % 0.7 %; Neutrophils # 6.9 K/mcL (1.6-8.9); Platelet Count 371 K/mcL (140-400); Red Blood Count 4.62 M/mcL (4.19-5.50); Red Cell Distribution Width 13.4 % (11.5-14.5); Segmented Neutrophils % 91.6 %
[2016-10-02 04:54] LABS: BUN/Creatinine Ratio 13 (6-26); Blood Urea Nitrogen 10 mg/dL (8-26); Carbon Dioxide 27 mEq/L (19-29); Chloride 98 mEq/L (98-109); Cholesterol 157 mg/dL (< 200); Glucose 157 mg/dL (70-99); HDL Cholesterol 39 mg/dL (40-59); LDL Cholesterol,Calculated 106 mg/dL (0-99); Osmolality,Calculated 280 (280-300); Potassium 4.3 mEq/L (3.5-4.5); Sodium 134 mEq/L (136-145); Triglycerides 62 mg/dL (< 150); eGFR For African Americans > 60 (> 60); eGFR For Non-African Americans > 60 (> 60)
[2016-10-02] MEDS: methylPREDNISolone 125 MG/2 ML VIAL IVP SCH (05:31)
[2016-10-02] MEDS: Ipratropium/Albuterol Neb 3 ML IH SCH ×2 (06:22→11:43)
[2016-10-02] MEDS ORDERED: *HR* Enoxaparin 40 MG/0.4 ML SYRINGE SQ SCH (07:00)
[2016-10-02] MEDS ORDERED: Aspirin 81 MG TAB.CHEW PO SCH (09:00)
--- NOTE | 2016-10-02 09:12 | ECHO - Doppler Report ---
Echocardiogram Name: Duong Simms Date of Study: 10/01/2016 Date: 1940 Ht: 71.0 in Medical Record#: [id number] Age: 75 Wt: 147.0 lb Gender: Male BSA: 1.85 Order #: [id number] Location: [facility] Room #: IC11 Reading Physician: Angelo Coles DO, DESMOND, PJ MARIN Acoustical Logging Engineer: Dulce Freeman RDCS Ordering Physician: Larry Stiles CNP Primary Physician: Mauro Joe MD Indications: NSTEMI Impressions: LVEF 30%. Normal LV chamber size and wall thickness. Severe segmental left ventricular systolic dysfunction. Mild left ventricular diastolic dysfunction. Atypical septal motion consistent with bundle branch block. Normal right ventricular structure and function. Mild pulmonary hypertension. No significant valvular dysfunction. Left Ventricular Wall Motion: Rest Echo Findings The apex, apical inferior, apical anterior, mid anterior, apical septal, mid inferior septal, apical lateral, mid anterior lateral and mid anterior septal hi were hypokinetic. All other wall segments showed normal motion. Findings: Study Quality * Technically adequate exam. ECG Findings * Sinus rhythm with BBB. Left Ventricle * LVEF 30%. * Normal LV chamber size and wall thickness. * Severe segmental left ventricular systolic dysfunction. * Mild left ventricular diastolic dysfunction. * Atypical septal motion consistent with bundle branch block. Right Ventricle * Normal right ventricular structure and function. Left Atrium * Normal left atrial size. Right Atrium * Normal right atrial size. Interatrial Septum * Interatrial septum not well evaluated. Aortic Valve * Trileaflet aortic valve with normal function. * No aortic regurgitation. * No aortic stenosis. Mitral Valve * Normal mitral valve structure and function. * No mitral stenosis. * No mitral regurgitation. Tricuspid Valve * Normal tricuspid valve structure and function. * Trace tricuspid regurgitation. * Mild pulmonary hypertension. Pulmonic Valve * Normal pulmonic valve structure and function. * No pulmonic regurgitation. Aorta * Normally sized aortic root. Pericardium * The pericardium appears normal. History Hypertension Measurements: BP: 116/ 77 2D Normal Values RVIDd: 2.27 cm <2.7 cm IVSd: .87 cm 0.6 - 1.0 cm LVIDd: 4.97 cm 3.7 - 5.6 cm LVPWd: .92 cm 0.6 - 1.1 cm LVIDs: 2.61 cm 1.5 - 3.6 cm AO: 2.90 cm < 4.0 cm LA: 2.50 cm 2.0 - 4.0cm %FS: 47.50 cm >25 % LA volume: 26 Mitral Valve Peak E:.62 m/sec Peak A:.90 m/sec E/A Ratio:0.7 Peak E' Lat Heath:6.31 cm/s Peak E' Med Heath:6.53 cm/s E/E' Lat Ratio:9.8 E/E' Med Ratio:9.5 Tricuspid Valve TV Regurg Peak Grad: 27.00mmHg TV Regurg Peak Heath: 2.60m/sec Updated by Angelo Coles DO, FACMariana, TOMAS, PJ on 10/02/2016 9:09:00 AM electronically signed on 10/02/2016 9:09:24 AM with status of Final Wall Motion Marcial: 1=Normal, 2=Hypokinesis, 3=Akinesis, 4=Dyskinesis, 5=Aneurysmal, 6=Hyperkinetic, X=Not Visualized (Blank)=Missing
[2016-10-02] MEDS ORDERED: Doxycycline 100 MG CAPSULE PO SCH (09:15)
[2016-10-02] MEDS ORDERED: Finasteride 5 MG TABLET PO SCH (09:15)
[2016-10-02 09:34] VITALS: BP 125/81
--- NOTE | 2016-10-02 09:46 | Discharge Summary ---
Date of Encounter: 10/02/16 Time of Encounter: 09:38 - Discharge Diagnosis (1) BPH (benign prostatic hyperplasia) Priority: Secondary Status: Acute Qualifiers: Prostatic enlargement morphology: unspecified morphology Lower urinary tract symptom presence: symptoms present Qualified Code(s): N40.1 - Benign prostatic hyperplasia with lower urinary tract symptoms (2) COPD (chronic obstructive pulmonary disease) Priority: Secondary Status: Acute Qualifiers: COPD type: emphysema Emphysema type: unspecified Qualified Code(s): J43.9 - Emphysema, unspecified (3) Community acquired pneumonia Priority: Secondary Status: Acute (4) Essential hypertension Priority: Secondary Status: Acute (5) NSTEMI (non-ST elevated myocardial infarction) Priority: Primary Status: Acute - Discharge Medications Prescriptions: Nitroglycerin 0.4 mg SL Q5MIN PRN #30 tab.subl PRN Reason: Chest Pain Aspirin 81 mg PO DAILY #30 tab.chew Atorvastatin [Lipitor] 80 mg PO HS #60 tablet Carvedilol [Coreg] 3.125 mg PO BIDWM #60 tablet Clopidogrel [Plavix] 75 mg PO DAILY #30 tablet Doxycycline 100 mg PO BID #10 capsule Ipratropium/Albuterol Neb [Duoneb] 3 ml IH QIDR PRN #60 inhsol PRN Reason: Shortness of breath PredniSONE 20 mg PO DAILY #7 tablet Home Medications: Albuterol Sulfate [Ventolin Hfa] 2 puff IH Q4H PRN 10/01/16 [History] Finasteride [Proscar] 5 mg PO DAILY 10/01/16 [History] Fluticasone/Salmeterol [Advair 250-50 Diskus] 1 each IH BID 10/01/16 [History] Hydrochlorothiazide 12.5 mg PO DAILY 10/01/16 [History] Aspirin 81 mg PO DAILY #30 tab.chew 10/02/16 [Rx] Atorvastatin [Lipitor] 80 mg PO HS #60 tablet 10/02/16 [Rx] Carvedilol [Coreg] 3.125 mg PO BIDWM #60 tablet 10/02/16 [Rx] Clopidogrel [Plavix] 75 mg PO DAILY #30 tablet 10/02/16 [Rx] Doxycycline 100 mg PO BID #10 capsule 10/02/16 [Rx] Ipratropium/Albuterol Neb [Duoneb] 3 ml IH QIDR PRN #60 inhsol 10/02/16 [Rx] Losartan Potassium [Cozaar] 50 mg PO DAILY #0 10/02/16 [Rx] Nitroglycerin 0.4 mg SL Q5MIN PRN #30 tab.subl 10/02/16 [Rx] PredniSONE 20 mg PO DAILY #7 tablet 10/02/16 [Rx] Allergies/Adverse Reactions: Allergies No Known Allergies Allergy (Verified 10/01/16 09:35) Procedures/tests Complete & Pending: Procedures Performed prior 72 hours Category Date Time Status CT chest wo con [CT] Routine Cat Scan 10/01/16 20:00 Completed ECG 12 lead ECG [ECG] Routine Y 10/02/16 07:00 Ordered ECG 12 lead ECG [ECG] Stat Y 10/01/16 11:58 Completed EV echocardiogram Routine Y 10/01/16 11:20 Completed Date of admission: 10/01/16 11:00 Primary care physician: Mauro Joe MD Consults: 10/01/16 11:58 Consult to Cardiac Rehabilitation-Phase1 [CONS] Routine Comment: Reason for Consult: AMI Call Completed: Yes Consult to Cardiac Rehabilitation-Phase1 [CONS] Routine Comment: Reason for Consult: post op cath Call Completed: Yes Consult to Nurse Navigator [CONS] Routine Comment: 10/01/16 13:06 Consult to Hospitalist [CONS] Routine Consulting Provider: Hospitalist Nicolette Reason for Consult: Manage comorbidities--COPD, abnormal CXR Call Completed: Yes - Patient Status Disposition: Home, Self-Care Condition: Good Functional capacity at discharge: independent ambulation Overall status at discharge: patient is back to baseline - Discharge Instructions Follow Up With: Mauro Joe MD [Primary Care Provider] - Angelo Coles DO [Partnered Physician] - - Diet and Activity Activity: as per the cardiac rehab Diet: advance to your usual diet, low fat, low cholesterol, low salt diet Interval History: Patient feels well. He says his breathing is back to baseline. He uses oxygen by nasal cannula at 2 L at home. He denies chest pain. He continues to have cough productive of sputum. His EKG shows no acute ischemic changes today. He is medically stable for discharge home. I have spent 45 minutes coordinating this discharge, time was spent examining the patient, providing counseling regarding living with COPD and recovering after NH. He will be scheduled to follow for cardiac rehabilitation. He declined influenza vaccination and Pneumovax due to a prior reaction to vaccine. Hospital course: Mr. Simms is a 75 year old male with past medical history significant for COPD , hypertension and chronic hypoxic respiratory failure who presented to the hospital with acute onset chest pain. His troponin was elevated and an EKG showed nonspecific changes. He was taken for emergent cardiac catheterization and was found to have a 99% proximal LAD stenosis. He had a PTCA with drug- eluting stent placement to the LAD. He tolerated the procedure well. Medical service was consulted for COPD and abnormal x-ray findings. He was diagnosed with COPD exacerbation and atypical pneumonia. He was treated for this with IV steroids, IV ceftriaxone and doxycycline. His symptoms improved. He will be transitioned to oral antibiotics and prednisone taper and will be discharged home. He had a CAT scan of the chest which showed reticulonodular opacities bilaterally indicative of inflammation versus scarring. A chest x-ray is recommended outpatient in 4-6 weeks after resolution of symptoms. He had an echocardiogram which found an ejection fraction of 30%. He was started on aspirin, Plavix, carvedilol and Lipitor and we will continue these medications upon discharge. He will continue with losartan 50 mg daily per home dose. He is medically stable for discharge home. - Time Spent with Patient Total time spent providing and/or coordinating discharge services: Greater than 30 minutes - Constitutional Vitals: Temp Pulse Resp BP Pulse Ox 97.6 F 113 20 125/81 91 L 10/02/16 08:14 10/02/16 08:00 10/02/16 08:00 10/02/16 08:00 10/02/16 08:00 General appearance: Present: A&O X 3, pleasant, no acute distress - Respiratory Respiratory exam: Present: CTAB, wheezes. Absent: accessory muscle use, rales, rhonchi - Cardiovascular Cardiovascular exam: Present: RRR, +S1, +S2. Absent: diastolic murmur, gallop, rubs, systolic murmur - VTE Reasons for not Prescribing Prophylaxis: Not indicated-Anticoagulated or INR therapeutic
[2016-10-02] MEDS ORDERED: Budesonide/Formoterol 80/4.5 MDI IH SCH (10:00)
--- NOTE | 2016-10-02 12:54 | Cardiology Progress Note ---
Date of Encounter: 10/02/16 Time of Encounter: 12:52 Assessment and Plan (1) NSTEMI (non-ST elevated myocardial infarction) Current Visit: Yes Status: Acute NSTEMI s/p PCI to proximal LAD. Feels good - no chest/arm pain. Importance of uninterrupted DAPT emphasized - at least 6 months, ideally one year. Continue statin/BB/ARB. Recommend increase Coreg to 6.25 mg BID. Montior HR and BP at home. Maintain log. All questions answered. (2) CAD in [place] artery Current Visit: Yes Status: Acute (3) Presence of stent in LAD coronary artery Current Visit: Yes Status: Acute (4) Ischemic cardiomyopathy Current Visit: Yes Status: Acute NSTEMI, s/p PCI LAD, resultant ischemic cardiomyopathy. CHF education provided. Medical therapy discussed. Titrate BB as tolerate as outpatient - d/c with coreg 6.25 mg BID. Continue other medical therapy. Cardiac rehabilitation as outpatient. Repeat echocardiogram in 3 months. If EF remains < 35%, consider primary prevention ICD. Discussion w patient/family: The assessment and plan as outlined above was discussed with the patient and/or family members who expressed understanding and agreement. All questions were answered. Thank you for involving us in the care of your patient. Please call with any questions. Subjective Principal diagnosis: NSTEMI Interval history: Seen and examined. Overall, feels much better since PCI. Chest/arm pain has resolved. Appreciate IM assistance; treating pneumonia. Patient very anxious to go home. Objective Vital Signs, Last 4 Hours Resp Pulse Ox 10/02/16 11:46 18 96 General: Conversant, No Apparent Distress HEENT: Atraumatic, Normocephaly, Mucus Membranes Moist Neck: No JVD, Normal carotid pulses Cardiac: Reg Rate and Rhythm, Normal S1 and S2, No Murmur Lungs: Normal Breath Sounds, No Wheeze, Rales, Rhonchi Neuro: Alert and responsive, No focal deficits noted Abdomen: Soft, Non-Tender Skin: No rashes noted on visualized skin Musculoskeletal: No Chest Wall Tenderness Extremities: No Clubbing, No Cyanosis, No Edema, Normal Pulses, Other (Cath site without erythmema/hematoma/etc. ) Results 10/02/16 04:01 10/02/16 04:01 Lab Results 10/01/16 10/02/16 10/02/16 12:45 04:01 04:01 WBC 7.5 Hgb 12.4 L D Hct 38.4 Plt Count 371 Sodium 134 L Potassium 4.3 Chloride 98 Carbon Dioxide 27 BUN 10 Creatinine 0.75 Glucose 157 H Calcium 9.0 Troponin I 4.08 H* - Imaging and Cardiology Echo: report reviewed Cardiac cath: report reviewed - EKG Interpretation EKG results cardiology: personally reviewed - VTE Reasons for not Prescribing Prophylaxis: Not indicated-Anticoagulated or INR therapeutic Consult Discharge Plan - Plan Instructions: Myocardial Infarction (DC), Chronic Obstructive Pulmonary Disease (DC), Pneumonia (DC) Referrals: Mauro Joe MD [Primary Care Provider] - Angelo Coles DO [Partnered Physician] - Prescriptions: Nitroglycerin 0.4 mg SL Q5MIN PRN #30 tab.subl PRN Reason: Chest Pain Aspirin 81 mg PO DAILY #30 tab.chew Atorvastatin [Lipitor] 80 mg PO HS #60 tablet Carvedilol [Coreg] 3.125 mg PO BIDWM #60 tablet Clopidogrel [Plavix] 75 mg PO DAILY #30 tablet Doxycycline 100 mg PO BID #10 capsule Ipratropium/Albuterol Neb [Duoneb] 3 ml IH QIDR PRN #60 inhsol PRN Reason: Shortness of breath PredniSONE 20 mg PO DAILY #7 tablet
[2016-10-03] MEDS ORDERED: hydroCHLOROthiazide 25 MG TABLET PO SCH (09:00)
--- NOTE | 2016-10-04 13:22 | Electrocardiograph Report ---
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
--- NOTE | 2016-10-04 13:39 | Electrocardiograph Report ---
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
--- NOTE | 2016-10-04 15:18 | Electrocardiograph Report ---
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
== END 2016-10-02 13:45 | disposition home or self-care (01) | DRG 246 ==
LOC: EMEROO 09:32 → 2NNU 09:32 → ICNU 11:00
PROVIDERS: ADMIT Internal Medicine Interventional Cardiology; ATTEND Internal Medicine Interventional Cardiology

== ENCOUNTER 2016-10-17 13:40 | Inpatient (IN) ==
[2016-10-17 14:17] LABS: Basophils # 0.1 K/mcL (0.0-0.2); Basophils % 0.5 %; Eosinophils # 0.2 K/mcL (0.0-0.6); Eosinophils % 1.4 %; Hematocrit 37.7 % (37.5-50.1); Hemoglobin 12.5 g/dL (12.9-16.9); Immature Granulocytes % 1.1 % (0-4); Lymphocytes # 1.1 K/mcL (0.6-4.6); Lymphocytes % 7.7 %; Mean Corpuscular HGB Conc 33.2 g/dL (31.6-35.5); Mean Corpuscular Hemoglobin 27.7 pg (28.0-33.3); Mean Corpuscular Volume 83.4 fL (83.0-100.0); Mean Platelet Volume 8.8 fL (9.4-12.4); Monocytes # 0.7 K/mcL (0.0-1.3); Monocytes % 4.9 %; Neutrophils # 11.7 K/mcL (1.6-8.9); Platelet Count 364 K/mcL (140-400); Red Blood Count 4.52 M/mcL (4.19-5.50); Red Cell Distribution Width 13.9 % (11.5-14.5); Segmented Neutrophils % 84.4 %
[2016-10-17 14:21] LABS: INR 1.1
[2016-10-17 14:24] LABS: Activated Partial Thrombo Time 29.4 Seconds (26.0-36.0)
[2016-10-17 14:30] LABS: BUN/Creatinine Ratio 15 (6-26); Blood Urea Nitrogen 11 mg/dL (8-26); Calcium 9.2 mg/dL (8.6-10.8); Carbon Dioxide 30 mEq/L (19-29); Chloride 95 mEq/L (98-109); Glucose 157 mg/dL (70-99); Magnesium 1.8 mg/dL (1.6-2.6); Osmolality,Calculated 275 (280-300); Potassium 4.1 mEq/L (3.5-4.5); Sodium 131 mEq/L (136-145); eGFR For African Americans > 60 (> 60); eGFR For Non-African Americans > 60 (> 60)
--- NOTE | 2016-10-17 14:32 | Emergency Department Note ---
Disposition Clinical Impression: Colitis GI bleed Qualifiers: GI bleed type/associated pathology: unspecified gastrointestinal hemorrhage type Qualified Code(s): K92.2 - Gastrointestinal hemorrhage, unspecified Disposition: Admitted As Inpatient Condition: Good Instructions: Rectal Bleeding (ED) Referrals: Mauro Joe MD [Primary Care Provider] - Forms: ED Satisfaction Letter Time of Disposition: 15:58 GI Bleed HPI - General Chief complaint: ED GI Bleed Stated complaint: GI Bleed/AMS Time Seen by Provider: 10/17/16 13:50 Source: family Limitations: no limitations Nursing Notes Reviewed: Yes Vital Signs Reviewed: Yes - History of Present Illness HPI Narrative: Patient presents emergency room complaining of blood per rectum. Recently started on Plavix secondary to stent placement 2 weeks ago. Denied any chest pain shortness of breath any vision changes nausea vomiting or diarrhea. He has had dark colored stool with a last several hours. Denies any abdominal pain or symptoms at this time. Family is concerned because of a describe some intermittent confusion and then generalized weakness along with the blood in the stool. 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 Consistency: constant Severity: mild Improves with: nothing Worsens with: bowel movement Context: anticoagulant use Associated symptoms: Reports: loss of appetite, malaise Treatments Prior to Arrival: none - Related Data Home Medications Medication Instructions Recorded Confirmed Albuterol Sulfate [Ventolin Hfa] 2 puff IH Q4H PRN 10/01/16 10/01/16 Finasteride [Proscar] 5 mg PO DAILY 10/01/16 10/01/16 Fluticasone/Salmeterol [Advair 1 each IH BID 10/01/16 10/01/16 250-50 Diskus] Hydrochlorothiazide 12.5 mg PO DAILY 10/01/16 10/01/16 Previous Rx's Medication Instructions Recorded Aspirin 81 mg PO DAILY #30 tab.chew 10/02/16 Atorvastatin [Lipitor] 80 mg PO HS #60 tablet 10/02/16 Carvedilol [Coreg] 6.25 mg PO BIDWM #60 tablet 10/02/16 Clopidogrel [Plavix] 75 mg PO DAILY #30 tablet 10/02/16 Doxycycline 100 mg PO BID #10 capsule 10/02/16 Ipratropium/Albuterol Neb [Duoneb] 3 ml IH QIDR PRN #60 inhsol 10/02/16 Losartan Potassium [Cozaar] 50 mg PO DAILY #0 10/02/16 Nitroglycerin 0.4 mg SL Q5MIN PRN #30 tab.subl 10/02/16 PredniSONE 20 mg PO DAILY #7 tablet 10/02/16 Allergies Allergy/AdvReac Type Severity Reaction Status Date / Time No Known Allergies Allergy Verified 10/17/16 13:45 All systems ED: reviewed and negative except as stated. Constitutional: Denies: fever, chills Cardiovascular: Denies: palpitations, dyspnea on exertion Respiratory: Denies: cough, dyspnea, wheezes Gastrointestinal: Reports: abdominal pain, hematochezia. Denies: nausea, vomiting Genitourinary: Denies: dysuria, frequency Musculoskeletal: Denies: back pain Endocrine: Reports: fatigue Past Medical History - Past Medical History Attestation: Yes The following information was validated with the patient. Source: patient Medical history: Reports: aortic aneurysm, COPD, hypertension Surgical history: Reports: angioplasty/stent, vascular surgery, other Psychiatric history: Reports: no psych history - Social History Smoking Status: Former smoker Smokeless Tobacco Status: No Alcohol use: Reports: none Drug use: Reports: none Physical Exam - General Limitations: no limitations General appearance: alert, in no apparent distress - Head Head exam: atraumatic, normocephalic, normal inspection - Eye Eye exam: Present: normal appearance, PERRL, EOMI - Respiratory Respiratory exam: Present: normal lung sounds bilaterally - Cardiovascular Cardiovascular exam: Present: regular rate, normal rhythm, normal heart sounds - Abdominal Exam Abdominal exam: Present: soft, Non-Tender, normal bowel sounds. Absent: tenderness, distention, guarding, rebound, rigidity, Vila's sign, Rovsing's sign, tenderness at McBurney's Point - Rectal Exam Framework Developer present during exam: Yes Rectal exam: Present: normal inspection, heme (+) stool. Absent: hemorrhoids - Extremities Exam Extremities exam: Present: normal inspection, full ROM, normal capillary refill - Neurological Exam Neurological exam: Present: alert, oriented X3, CN II-XII intact, normal gait - Psychiatric Psychiatric exam: Present: normal affect, normal mood - Skin Skin exam: Present: warm, dry, intact, normal color Course Course Narrative: Patient seen and examined at the time of arrival. See history of present illness. 75-year-old male presents emergency room today in the care of the family for evaluation of bright red blood per rectum. Patient was just started on Plavix secondary to stent placement after myocardial infarction 2 weeks ago. Vital signs initial triage are stable. Heart rate is normal. Blood pressure normal. Family also can was concerned about generalized malaise and confusion. Patient is alert and oriented 3 on my evaluation. No acute distress. Bilateral wheezing on exam. Heart is regular. Abdomen soft nontender nondistended no masses no pulsatile lesions. No signs of pitting edema in extremities pulses are intact in the radial DP and PT distributions. Abdomen was evaluated extensively considering his history of aneurysm. No visible signs of pulsatile area or pain on evaluation noted. Blood pressure is stable. Patient this point is concerning for GI bleed of unknown etiology. Patient had CT imaging of the abdomen along with chest x-ray EKG and basic labs on troponin secondary to his recent catheterization stent placement. Patient stable resting comfortably in the bed. Disposition pending treatment course. Hemoccult testing also ordered. Type and screen sent to lab for treatment evaluation - Reevaluation(s) Reevaluation #1: Patient found to have grossly positive stool study. Labs are within normal limits. Chest x-ray is stable with no signs of acute pulmonary infiltrate. CT the abdomen is concerning for possible mass in the sigmoid colon along with colitis. Patient started on Cipro and Flagyl here in the emergency room. Vital signs are stable on review. Hospital was paged for admission process to be completed. Detailed review of the patient's presentation symptoms and medical history were discussed. No other recommendations from a hospitalist at this time. Patient will be admitted for observation and treatment of colitis with GI bleed. Patient family as well as the patient were informed. The [place] this plan. Patient stable in no acute distress at this point. Antibiotic regimen ordered. Time: 15:42 Vital Signs Temperature 97.3 F L 10/17/16 13:42 Pulse Rate 67 10/17/16 13:42 Respiratory Rate 14 10/17/16 13:42 Blood Pressure 118/72 10/17/16 13:42 O2 Sat by Pulse Oximetry 97 10/17/16 13:42 Temperature 97.3 F L 10/17/16 13:42 Pulse Rate 65 10/17/16 15:14 Respiratory Rate 16 10/17/16 15:14 Blood Pressure 126/77 10/17/16 15:14 O2 Sat by Pulse Oximetry 99 10/17/16 15:14 Oxygen Delivery Oxygen Delivery Nasal Cannula GI Bleed - MDM Narrative Medical decision making narrative: Colitis, GI bleed - Medical Records Medical records reviewed: Yes I reviewed the patient's medical records. - Lab Data Lab results reviewed: Yes I reviewed the patient's lab results. Result diagrams: 10/17/16 14:06 10/17/16 14:06 Lab Results 10/17/16 10/17/16 10/17/16 Range/Units 13:20 14:06 14:06 WBC 13.9 H (4.3-11.1) K/mcL RBC 4.52 (4.19-5.50) M/mcL Hgb 12.5 L (12.9-16.9) g/dL Hct 37.7 (37.5-50.1) % MCV 83.4 (83.0-100.0) fL MCH 27.7 L (28.0-33.3) pg MCHC 33.2 (31.6-35.5) g/dL RDW 13.9 (11.5-14.5) % Plt Count 364 (140-400) K/mcL MPV 8.8 L (9.4-12.4) fL Immature Gran % 1.1 (0-4) % Seg Neutrophils % 84.4 % Lymphocytes % 7.7 % Monocytes % 4.9 % Eosinophils % 1.4 % Basophils % 0.5 % Neutrophils # 11.7 H (1.6-8.9) K/mcL Lymphocytes # 1.1 (0.6-4.6) K/mcL Monocytes # 0.7 (0.0-1.3) K/mcL Eosinophils # 0.2 (0.0-0.6) K/mcL Basophils # 0.1 (0.0-0.2) K/mcL PT 12.0 (9.4-12.1) Seconds INR 1.1 APTT 29.4 (26.0-36.0) Seconds Sodium (136-145) mEq/L Potassium (3.5-4.5) mEq/L Chloride (98-109) mEq/L Carbon Dioxide (19-29) mEq/L BUN (8-26) mg/dL Creatinine (0.72-1.25) mg/dL Est GFR ( Amer) (> 60) Est GFR (Non-Af Amer) (> 60) BUN/Creatinine Ratio (6-26) Glucose (70-99) mg/dL Calculated Osmolality (280-300) Calcium (8.6-10.8) mg/dL Magnesium (1.6-2.6) mg/dL Troponin I (0-0.03) ng/mL Stool Occult Blood Positive A (Negative) Blood Type Antibody Screen 10/17/16 10/17/16 10/17/16 Range/Units 14:06 14:06 14:06 WBC (4.3-11.1) K/mcL RBC (4.19-5.50) M/mcL Hgb (12.9-16.9) g/dL Hct (37.5-50.1) % MCV (83.0-100.0) fL MCH (28.0-33.3) pg MCHC (31.6-35.5) g/dL RDW (11.5-14.5) % Plt Count (140-400) K/mcL MPV (9.4-12.4) fL Immature Gran % (0-4) % Seg Neutrophils % % Lymphocytes % % Monocytes % % Eosinophils % % Basophils % % Neutrophils # (1.6-8.9) K/mcL Lymphocytes # (0.6-4.6) K/mcL Monocytes # (0.0-1.3) K/mcL Eosinophils # (0.0-0.6) K/mcL Basophils # (0.0-0.2) K/mcL PT (9.4-12.1) Seconds INR APTT (26.0-36.0) Seconds Sodium 131 L (136-145) mEq/L Potassium 4.1 (3.5-4.5) mEq/L Chloride 95 L (98-109) mEq/L Carbon Dioxide 30 H (19-29) mEq/L BUN 11 (8-26) mg/dL Creatinine 0.73 (0.72-1.25) mg/dL Est GFR ( Amer) > 60 (> 60) Est GFR (Non-Af Amer) > 60 (> 60) BUN/Creatinine Ratio 15 (6-26) Glucose 157 H (70-99) mg/dL Calculated Osmolality 275 L (280-300) Calcium 9.2 (8.6-10.8) mg/dL Magnesium 1.8 (1.6-2.6) mg/dL Troponin I 0.02 (0-0.03) ng/mL Stool Occult Blood (Negative) Blood Type A POSITIVE Antibody Screen NEGATIVE - Radiology Data Radiology results reviewed: Yes I reviewed the patient's radiology results. CT head confirms colitis and possible mass, chest x-ray is negative for acute pulmonary infiltrate - EKG Data EKG attestation: Yes I reviewed and interpreted this EKG. EKG shows normal: sinus rhythm, axis, intervals, QRS complexes Rate: normal Rhythm: NSR [place]/QRS: normal T wave inversions noted in: I, aVL, v3, v4, v5, v6 Critical Care Time Critical Care Time: Yes Total Critical Care Time: 35 Attestation: Independent of procedures and medical intervention Attestation Statement - Attestation Attestation: I examined this patient and my medical decision-making was reviewed with the THEATER EDUCATION TEACHER/PA/Advanced Practice Nurse/Resident Physician. I agree with the documented findings, disposition and treatment plan as described except to the extent set forth below. Patient to the emergency department with a chief complaint of rectal bleeding. Patient had one bowel movement today that had bloody diarrhea. Denies abdominal pain. Denies fever. Patient recently had a coronary stent placed and was started on Plavix at that time. On examination he is awake alert no acute distress with a soft, nontender abdomen. Rectal examination reveals dark red blood. Plan. Labs, type and screen, and CT.
[2016-10-17] MEDS ORDERED: Ipratropium/Albuterol Neb 3 ML IH ONE (15:09)
[2016-10-17] MEDS ORDERED: MetroNIDAZOLE 500 MG/100 ML 500 MG/100 ML BAG IVPB ONE (15:22)
[2016-10-17] MEDS ORDERED: Naloxone 0.4 MG/ML INJ IVP PRN (17:59)
[2016-10-17] MEDS ORDERED: Nitroglycerin 0.4 MG TAB.SUBL SL PRN (18:04)
[2016-10-17] MEDS ORDERED: Albuterol 2.5 MG/3 ML NEBULIZER IH PRN (18:07)
[2016-10-17] MEDS: Ipratropium/Albuterol Neb 3 ML IH SCH ×2 (18:24→22:23)
[2016-10-17 19:00] LABS: Hematocrit 35.1 % (37.5-50.1); Hemoglobin 11.8 g/dL (12.9-16.9)
--- NOTE | 2016-10-17 19:14 | Internal Med History&Physical ---
<Gwendolyn Raya - Last Filed: 10/17/16 20:14> Date of Encounter: 10/17/16 Time of Encounter: 18:56 Assessment and Plan (1) GI bleed Current visit: Yes Status: Acute Patient reports bloody diarrhea this morning. He was started on PLavix 2 weeks ago after cardiac cath with stent placement for AK. Stool occult +. Hgb stable at 12.5. Hold aspirin and plavix H&H Q6 hours NPO except for ice chips and meds Consult Gastroenterology Qualifiers: GI bleed type/associated pathology: unspecified gastrointestinal hemorrhage type Qualified Code(s): K92.2 - Gastrointestinal hemorrhage, unspecified (2) Colitis Current visit: Yes Status: Acute Patient with episode of bloody diarrhea this morning. CT Abd shows severe mucosal thickening in the distal sigmoid colon which may represent an underlying mass. Acute diverticulitis cannot be excluded but is considered less likely. WBC count elevated to 13.9. stool cultures NPO except for meds and ice chips Cipro and flagyl IVPB IV fluids 0.9NS at 100mL/hr Consult GI . (3) Essential hypertension Current visit: No Status: Acute Patient's blood pressure has been running low: 100s/70s. Patient also describes some lightheadedness on standing since being discharged after his AK/ cath. Will get orthostatic VS. May need to lower doses of some of his blood pressure medications. For now, continue home doses of coreg and HCTZ. Hold his losartan for hypotension. (4) COPD (chronic obstructive pulmonary disease) Current visit: No Status: Acute Patient reports he is at his baseline in terms of shortness of breath. He wears 2.5L of O2 at home. He is satting 97-100% on 2L here. CXR shows emphysema and unchanged right upper lobe opacity with morphology favoring scar, and bibasilar atelectasis or scarring. On exam, he has diffuse expiratory wheezes and prolonged expiratory phase. titrate oxygen to maintain O2 sat > 92%. duoneb treatments QID Albuterol nebulizer Q2hr PRN Symbicort BID Qualifiers: COPD type: emphysema Emphysema type: unspecified Qualified Code(s): J43.9 - Emphysema, unspecified (5) BPH (benign prostatic hyperplasia) Current visit: No Status: Acute Continue home dose of proscar. Qualifiers: Prostatic enlargement morphology: unspecified morphology Lower urinary tract symptom presence: symptoms present Qualified Code(s): N40.1 - Benign prostatic hyperplasia with lower urinary tract symptoms (6) CAD in [place] artery Current visit: No Status: Acute Patient is status post stent to LAD 2 weeks ago. Continue Coreg, hold aspirin and plavix due to GI bleed. (7) DVT prophylaxis Current visit: No Status: Acute Up to chair BID Sequential compression devices Pharmacologic prophylaxis is contraindicated in patient with GI bleed. Internal Medicine - H&P: HPI Chief complaint: bloody stool Admitted From: Emergency Dept Plans for Post Hospital Care: Home History of present illness: Mr. Simms is a 75 year old male with hypertension, COPD, history of aortic aneurysm status post AAA repair, coronary artery disease, status post recent stent placement 2 weeks ago for AK, presented to the emergency department today with complaints of bright red blood per rectum. He reports that this morning he had a bowel movement that appeared to be bloody diarrhea. He denies any prior black or bloody stools. He reports occasional lightheadedness usually associated with change in position ever since his discharge from the AK and cardiac catheter. Patient denies any headaches, chest pain, palpitations, nausea, or vomiting. He denies any numbness or tingling. He reports shortness of breath, but this is chronic for him with his diagnosis of COPD, and not increased from his baseline. Evaluation in the emergency department showed elevated white blood cell count of 13.9, troponin was negative at 0.02, fecal occult blood was positive. Hgb was normal at 12.5. CT of the abdomen showed a severe mucosal thickening of the distal sigmoid colon which may represent an underlying mass, advanced diverticulosis, thickening of the mucosal thickening is not adjacent to the daughter diverticuli, acute diverticular colitis cannot be excluded but less likely, interval repair of AAA. Chest x-ray showed emphysema and unchanged right upper lobe opacity with morphology favoring scar, bibasilar atelectasis or scarring. On exam, patient is alert and oriented, in no acute distress. Heart has regular rate and rhythm, lungs have diffuse expiratory wheezes and prolonged expiratory phase. Past Med Surg Social Fam HX - Past Medical History Medical history: aortic aneurysm, COPD, coronary artery disease, hypertension, myocardial infarction Psychiatric history: no psych history - Past Surgical History Surgical History: angioplasty/stent, vascular surgery, other - Social History Smoking Status: Former smoker (40 pack year history) Smokeless Tobacco Status: No Alcohol use: none Drug use: none - Family History Mother Living Status: Age at : 60 Hx Family Cardiac Disorders: Yes Father Living Status: Age at : 76 Hx Family Respiratory Disorders: Yes Internal Medicine - H&P: Meds Albuterol Sulfate [Ventolin Hfa] 2 puff IH Q4H PRN 10/01/16 [History] Finasteride [Proscar] 5 mg PO DAILY 10/01/16 [History] Fluticasone/Salmeterol [Advair 250-50 Diskus] 1 puff IH BID 10/01/16 [History] Hydrochlorothiazide 12.5 mg PO DAILY 10/01/16 [History] Aspirin 81 mg PO DAILY #30 tab.chew 10/02/16 [Rx] Atorvastatin [Lipitor] 80 mg PO HS #60 tablet 10/02/16 [Rx] Carvedilol [Coreg] 6.25 mg PO BIDWM #60 tablet 10/02/16 [Rx] Clopidogrel [Plavix] 75 mg PO DAILY #30 tablet 10/02/16 [Rx] Ipratropium/Albuterol Neb [Duoneb] 3 ml IH QIDR PRN #60 inhsol 10/02/16 [Rx] Losartan Potassium [Cozaar] 50 mg PO DAILY #0 10/02/16 [Rx] Nitroglycerin 0.4 mg SL Q5MIN PRN #30 tab.subl 10/02/16 [Rx] Allergies No Known Allergies Allergy (Verified 10/17/16 13:45) All Systems PM: A 10-system review of systems was performed and is negative for pertinent findings except as documented above in the HPI. - Constitutional Constitutional: no chills, no fever(s), no night sweats - EENT Eyes: no change in vision, no discharge, no pain, no photophobia Ears: no ear discharge, no ear pain, no tinnitus Nose, mouth and throat: no dysphagia, no nasal discharge, no neck pain, no sore throat - Cardiovascular Cardiovascular ROS IM: no chest pain, no diaphoresis, no dyspnea, no lightheadedness, no palpitations, no syncope - Respiratory Respiratory: cough, dyspnea, dyspnea on exertion, wheezing, no excessive phlegm production - Gastrointestinal Gastrointestinal: diarrhea, hematochezia, no abdominal pain, no hematemesis, no melena, no nausea, no vomiting - Musculoskeletal Musculoskeletal ROS IM: no numbness, no tingling - Integumentary Integumentary IM: no rash, no unusual bruising - Neurological Neurological ROS: no confusion, no convulsions, no focal weakness, no numbness, no tingling, no tremor(s) - Hematologic/Lymphatic Hematologic/Lymphatic: no easy bruising - Constitutional Vitals: Temp Pulse Resp BP Pulse Ox 97.7 F 16 16 109/71 97 10/17/16 18:14 10/17/16 18:14 10/17/16 18:14 10/17/16 18:14 10/17/16 18:14 General appearance: Present: A&O X 3, pleasant, no acute distress - Head Head exam: Present: atraumatic, normocephalic - Eye Eye exam: Present: PERRL, conjuntiva pink, sclera anicteric Pupils: Present: PERRL - Neck Neck exam general surgery: Present: supple, trachea midline. Absent: lymphadenopathy - Respiratory Respiratory exam: Present: prolonged expiratory phase, wheezes. Absent: accessory muscle use, rales, rhonchi - Cardiovascular Cardiovascular exam: Present: RRR, +S1, +S2. Absent: diastolic murmur, gallop, rubs, systolic murmur - GI/Abdominal GI/Abdominal exam: Present: normal bowel sounds, soft, no peritoneal signs. Absent: distended, tenderness - Extremities Exam Extremities exam: Present: warm, radial pulses palpable and symetrical. Absent : calf tenderness, cyanotic, pedal edema - Neurological Exam Neurological exam: Present: CN II-XII intact, oriented X3, no focal deficits. Absent: facial droop, speech deficit - Skin Skin exam: Present: dry, intact Internal Med - H&P Results - Labs CBC & Chem 7: 10/17/16 18:51 10/17/16 14:06 Labs: All Lab Results (24 Hours) 10/17/16 10/17/16 10/17/16 Range/Units 13:20 14:06 14:06 WBC 13.9 H (4.3-11.1) K/mcL RBC 4.52 (4.19-5.50) M/mcL Hgb 12.5 L (12.9-16.9) g/dL Hct 37.7 (37.5-50.1) % MCV 83.4 (83.0-100.0) fL MCH 27.7 L (28.0-33.3) pg MCHC 33.2 (31.6-35.5) g/dL RDW 13.9 (11.5-14.5) % Plt Count 364 (140-400) K/mcL MPV 8.8 L (9.4-12.4) fL Immature Gran % 1.1 (0-4) % Seg Neutrophils % 84.4 % Lymphocytes % 7.7 % Monocytes % 4.9 % Eosinophils % 1.4 % Basophils % 0.5 % Neutrophils # 11.7 H (1.6-8.9) K/mcL Lymphocytes # 1.1 (0.6-4.6) K/mcL Monocytes # 0.7 (0.0-1.3) K/mcL Eosinophils # 0.2 (0.0-0.6) K/mcL Basophils # 0.1 (0.0-0.2) K/mcL PT 12.0 (9.4-12.1) Seconds INR 1.1 APTT 29.4 (26.0-36.0) Seconds Sodium (136-145) mEq/L Potassium (3.5-4.5) mEq/L Chloride (98-109) mEq/L Carbon Dioxide (19-29) mEq/L BUN (8-26) mg/dL Creatinine (0.72-1.25) mg/dL Est GFR ( Amer) (> 60) Est GFR (Non-Af Amer) (> 60) BUN/Creatinine Ratio (6-26) Glucose (70-99) mg/dL Calculated Osmolality (280-300) Calcium (8.6-10.8) mg/dL Magnesium (1.6-2.6) mg/dL Troponin I (0-0.03) ng/mL Stool Occult Blood Positive A (Negative) Blood Type Antibody Screen 10/17/16 10/17/16 10/17/16 Range/Units 14:06 14:06 14:06 WBC (4.3-11.1) K/mcL RBC (4.19-5.50) M/mcL Hgb (12.9-16.9) g/dL Hct (37.5-50.1) % MCV (83.0-100.0) fL MCH (28.0-33.3) pg MCHC (31.6-35.5) g/dL RDW (11.5-14.5) % Plt Count (140-400) K/mcL MPV (9.4-12.4) fL Immature Gran % (0-4) % Seg Neutrophils % % Lymphocytes % % Monocytes % % Eosinophils % % Basophils % % Neutrophils # (1.6-8.9) K/mcL Lymphocytes # (0.6-4.6) K/mcL Monocytes # (0.0-1.3) K/mcL Eosinophils # (0.0-0.6) K/mcL Basophils # (0.0-0.2) K/mcL PT (9.4-12.1) Seconds INR APTT (26.0-36.0) Seconds Sodium 131 L (136-145) mEq/L Potassium 4.1 (3.5-4.5) mEq/L Chloride 95 L (98-109) mEq/L Carbon Dioxide 30 H (19-29) mEq/L BUN 11 (8-26) mg/dL Creatinine 0.73 (0.72-1.25) mg/dL Est GFR ( Amer) > 60 (> 60) Est GFR (Non-Af Amer) > 60 (> 60) BUN/Creatinine Ratio 15 (6-26) Glucose 157 H (70-99) mg/dL Calculated Osmolality 275 L (280-300) Calcium 9.2 (8.6-10.8) mg/dL Magnesium 1.8 (1.6-2.6) mg/dL Troponin I 0.02 (0-0.03) ng/mL Stool Occult Blood (Negative) Blood Type A POSITIVE Antibody Screen NEGATIVE 10/17/16 Range/Units 18:51 WBC (4.3-11.1) K/mcL RBC (4.19-5.50) M/mcL Hgb 11.8 L (12.9-16.9) g/dL Hct 35.1 L (37.5-50.1) % MCV (83.0-100.0) fL MCH (28.0-33.3) pg MCHC (31.6-35.5) g/dL RDW (11.5-14.5) % Plt Count (140-400) K/mcL MPV (9.4-12.4) fL Immature Gran % (0-4) % Seg Neutrophils % % Lymphocytes % % Monocytes % % Eosinophils % % Basophils % % Neutrophils # (1.6-8.9) K/mcL Lymphocytes # (0.6-4.6) K/mcL Monocytes # (0.0-1.3) K/mcL Eosinophils # (0.0-0.6) K/mcL Basophils # (0.0-0.2) K/mcL PT (9.4-12.1) Seconds INR APTT (26.0-36.0) Seconds Sodium (136-145) mEq/L Potassium (3.5-4.5) mEq/L Chloride (98-109) mEq/L Carbon Dioxide (19-29) mEq/L BUN (8-26) mg/dL Creatinine (0.72-1.25) mg/dL Est GFR ( Amer) (> 60) Est GFR (Non-Af Amer) (> 60) BUN/Creatinine Ratio (6-26) Glucose (70-99) mg/dL Calculated Osmolality (280-300) Calcium (8.6-10.8) mg/dL Magnesium (1.6-2.6) mg/dL Troponin I (0-0.03) ng/mL Stool Occult Blood (Negative) Blood Type Antibody Screen - Diagnostic Studies CT scan - abdomen Additional comments: Abdomen/Pelvis CT 10/17/16 14:13 IMPRESSION: 1. Severe mucosal thickening at the distal sigmoid colon may represent an underlying mass. Correlation with colonoscopy is recommended. 2. Advanced diverticulosis. Site of mucosal thickening is not adjacent to a large number of diverticuli, and there is no inflammation in the adjacent fat. Acute diverticulitis cannot be excluded but would be considered less likely. 3. No associated lymphadenopathy. 4. Interval repair of AAA. 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 D/ / Kannan Hameed MD / Kannan Hameed MD Interpreting Provider: Kannan Hameed MD Chest x-ray Additional comments: Chest X-Ray 10/17/16 14:13 IMPRESSION: Emphysema and unchanged right upper lobe opacity with morphology favoring scar. Bibasilar atelectasis or scarring. D/ / Sanket Fonseca MD / Sanket Fonseca MD Interpreting Provider: Sanket Fonseca MD <Yuniel Snyder - Last Filed: 10/17/16 23:55> Internal Medicine - H&P: HPI History of present illness: Mr. Simms is a 75 year old male All Systems PM: A 10-system review of systems was performed and is negative for pertinent findings except as documented above in the HPI. - Constitutional Vitals: Temp Pulse Resp BP Pulse Ox 97.7 F 72 18 127/78 96 10/17/16 22:17 10/17/16 22:17 10/17/16 22:36 10/17/16 22:17 10/17/16 22:36 Internal Med - H&P Results - Labs CBC & Chem 7: 10/17/16 18:51 10/17/16 14:06 Labs: Short CBC 10/17/16 Range/Units 18:51 Hgb 11.8 L (12.9-16.9) g/dL Hct 35.1 L (37.5-50.1) % - Attending Attestation I examined this patient and my medical decision-making was reviewed with the VOICE INTERCEPT TECHNICIAN/PA/Advanced Practice Nurse/Resident Physician. I agree with the documented findings, disposition and treatment plan as described except to the extent set forth below. GI bleeding, monitor hemoglobin. IV fluids. NPO. IV antibiotics. Discussed with patient.
[2016-10-17] MEDS: 0.9 % Sodium Chloride 1,000 ML IVC SCH (20:46)
[2016-10-17] MEDS: MetroNIDAZOLE 500 MG/100 ML 500 MG/100 ML BAG IVPB SCH (23:28)
[2016-10-18 03:51] LABS: Adenovirus F 40/41 PCR Not detected (Not detect); Astrovirus PCR Not detected (Not detect); C.difficile Toxin A/B by PCR Not detected (Not detect); Campylobacter by PCR Not detected (Not detect); Cryptosporidium by PCR Not detected (Not detect); Cyclospora cayetanensis PCR Not detected (Not detect); E. coli O157 by PCR Not detected (Not detect); Entamoeba histolytica PCR Not detected (Not detect); Enteroaggregative E.coli(EAEC) Not detected (Not detect); Enteropathogenic E.coli(EPEC) Not detected (Not detect); Enterotoxigenic E.coli (ETEC) Not detected (Not detect); Giardia lamblia PCR Not detected (Not detect); Norovirus GI/GII PCR Not detected (Not detect); Plesiomonas shigelloides PCR Not detected (Not detect); Rotavirus A PCR Not detected (Not detect); Salmonella PCR Not detected (Not detect); Sapovirus PCR Not detected (Not detect); Shig/EnteroinvasiveE coli EIEC Not detected (Not detect); Shigalike tox-prod E coli STEC Not detected (Not detect); Vibrio PCR Not detected (Not detect); Vibrio cholerae PCR Not detected (Not detect); Yersinia enterocolitica PCR Not detected (Not detect)
[2016-10-18 04:37] LABS: INR 1.2; Prothrombin Time 12.8 Seconds (9.4-12.1)
[2016-10-18 04:40] LABS: Activated Partial Thrombo Time 28.4 Seconds (26.0-36.0)
[2016-10-18 04:41] LABS: Basophils # 0.1 K/mcL (0.0-0.2); Basophils % 0.5 %; Eosinophils # 0.2 K/mcL (0.0-0.6); Eosinophils % 1.6 %; Hematocrit 31.6 % (37.5-50.1); Hemoglobin 10.6 g/dL (12.9-16.9); Immature Granulocytes % 1.4 % (0-4); Lymphocytes # 1.1 K/mcL (0.6-4.6); Lymphocytes % 11.7 %; Mean Corpuscular HGB Conc 33.5 g/dL (31.6-35.5); Mean Corpuscular Hemoglobin 27.4 pg (28.0-33.3); Mean Corpuscular Volume 81.7 fL (83.0-100.0); Monocytes # 0.6 K/mcL (0.0-1.3); Monocytes % 6.2 %; Neutrophils # 7.4 K/mcL (1.6-8.9); Platelet Count 280 K/mcL (140-400); Red Blood Count 3.87 M/mcL (4.19-5.50); Red Cell Distribution Width 13.9 % (11.5-14.5); Segmented Neutrophils % 78.6 %
[2016-10-18 04:52] LABS: BUN/Creatinine Ratio 13 (6-26); Blood Urea Nitrogen 8 mg/dL (8-26); Calcium 8.6 mg/dL (8.6-10.8); Carbon Dioxide 28 mEq/L (19-29); Chloride 95 mEq/L (98-109); Glucose 92 mg/dL (70-99); Osmolality,Calculated 270 (280-300); Potassium 3.7 mEq/L (3.5-4.5); Sodium 131 mEq/L (136-145); eGFR For African Americans > 60 (> 60); eGFR For Non-African Americans > 60 (> 60)
[2016-10-18] MEDS: Ipratropium/Albuterol Neb 3 ML IH SCH ×4 (05:16→22:40)
[2016-10-18] MEDS: Finasteride 5 MG TABLET PO SCH (07:47)
[2016-10-18] MEDS: MetroNIDAZOLE 500 MG/100 ML 500 MG/100 ML BAG IVPB SCH ×3 (07:49→23:54)
[2016-10-18] MEDS: 0.9 % Sodium Chloride 1,000 ML IVC SCH ×2 (07:49→17:36)
[2016-10-18] MEDS: Budesonide/Formoterol 80/4.5 MDI IH SCH ×2 (08:57→22:40)
[2016-10-18] MEDS ORDERED: hydroCHLOROthiazide 25 MG TABLET PO SCH (09:00)
--- NOTE | 2016-10-18 10:33 | Internal Med Progress Note ---
Date of Encounter: 10/18/16 Time of Encounter: 09:15 - Assessment and plan (1) GI bleed Current Visit: Yes Status: Acute Assessment and plan: Patient had 2 bloody bowel movements overnight. He remains hemodynamically stable at this time, we will continue to trend and transfuse if indicated. GI on board. Possible colonoscopy tomorrow. (2) Sigmoid thickening Current Visit: Yes Status: Acute Assessment and plan: Abdominal CT revealing mucosal thickening of the sigmoid colon with possible mass. GI is on board, appreciate their recommendations. He has had an unintentional weight loss of 20 pounds since June. On examination, his abdomen is soft and nondistended. He denies pain but endorses feeling pressure and fullness when his left lower quadrant is palpated. Bowel sounds present in all 4 quadrants. He states he has been very flatulent as well as having 2 bloody bowel movements overnight. ITS Impressions Abdomen/Pelvis CT 10/17/16 14:13 IMPRESSION: 1. Severe mucosal thickening at the distal sigmoid colon may represent an underlying mass. Correlation with colonoscopy is recommended. 2. Advanced diverticulosis. Site of mucosal thickening is not adjacent to a large number of diverticuli, and there is no inflammation in the adjacent fat. Acute diverticulitis cannot be excluded but would be considered less likely. 3. No associated lymphadenopathy. 4. Interval repair of AAA. 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 D/ / Kannan Hameed MD / Kannan Hameed MD Interpreting Provider: Kannan Hameed MD (3) Unintentional weight loss Current Visit: Yes Status: Acute Assessment and plan: Patient's states that he has lost 20 pounds since June unintentionally. Concern for possible colon cancer. GI on board. (4) Chronic anticoagulation Current Visit: Yes Status: Chronic Assessment and plan: Patient had a stent placed 2 weeks ago and was told that he needed to remain on Plavix for the rest of his life. Plavix held at this time due to GI bleed. We will readdress this issue after his GI concern. Possible cardiology consult for further recommendations on long-term anticoagulation therapy. Holding Plavix for now. (5) Essential hypertension Current Visit: No Status: Chronic Assessment and plan: Initially borderline hypotensive, now controlled. Orthostatic vital signs unremarkable. His home carvedilol 6.25 mg twice a day has been continued. HCTZ and Cozaar have been held due to initial hypotension, we will continue to trend and adjust his medications as indicated. (6) History of AAA (abdominal aortic aneurysm) repair Current Visit: No Status: Chronic (7) COPD (chronic obstructive pulmonary disease) Current Visit: No Status: Chronic Assessment and plan: No acute exacerbation. He is on 2 L per nasal cannula at home and here. He denies shortness of breath above his norm. Qualifiers: COPD type: emphysema Emphysema type: unspecified Qualified Code(s): J43.9 - Emphysema, unspecified (8) DVT prophylaxis Current Visit: No Status: Acute Assessment and plan: IPC's. Pharmacologic prophylaxis contraindicated secondary to GI bleed (9) BPH (benign prostatic hyperplasia) Current Visit: No Status: Chronic Assessment and plan: Continue Proscar Qualifiers: Prostatic enlargement morphology: unspecified morphology Lower urinary tract symptom presence: symptoms present Qualified Code(s): N40.1 - Benign prostatic hyperplasia with lower urinary tract symptoms (10) CAD in [place] artery Current Visit: No Status: Chronic Assessment and plan: Patient denies chest pain or shortness of breath. (11) Presence of stent in LAD coronary artery Current Visit: No Status: Chronic Assessment and plan: Stent placed last week, will address chronic anticoagulation/Plavix therapy once GI issue is addressed (12) Chronic respiratory failure Current Visit: Yes Status: Chronic Assessment and plan: 2 L per nasal cannula continuously at home, 2 L here. Qualifiers: Respiratory failure complication: unspecified whether with hypoxia or hypercapnia Qualified Code(s): J96.10 - Chronic respiratory failure, unspecified whether with hypoxia or hypercapnia - Subjective Interval history: Patient seen and examined. On examination, patient resting supine in bed conversing with his . He currently denies pain or shortness of breath. He states he had 2 bloody bowel movements overnight. - Constitutional Vitals: Temp Pulse Resp BP Pulse Ox 97.5 F L 71 16 122/71 98 10/18/16 06:52 10/18/16 07:44 10/18/16 06:52 10/18/16 07:44 10/18/16 06:52 General appearance: Present: A&O X 3, pleasant, no acute distress, answers questions appropriately - Head Head exam: Present: atraumatic, normocephalic - Eye Eye exam: Present: PERRL, conjuntiva pink, sclera anicteric Pupils: Present: PERRL - Neck Neck exam general surgery: Present: supple, trachea midline. Absent: lymphadenopathy - Respiratory Respiratory exam: Present: CTAB. Absent: accessory muscle use, rales, respiratory distress, rhonchi, wheezes - Cardiovascular Cardiovascular exam: Present: RRR, +S1, +S2. Absent: diastolic murmur, gallop, rubs, systolic murmur - GI/Abdominal GI/Abdominal exam: Present: hyperactive bowel sounds, soft, tenderness (Feels pressure to left lower quadrant with palpitation), no peritoneal signs. Absent : distended - Extremities Exam Extremities exam: Present: warm, radial pulses palpable and symetrical. Absent : calf tenderness, cyanotic, pedal edema - Neurological Exam Neurological exam: Present: alert, CN II-XII intact, oriented X3, no focal deficits, strengths equal and symetr throughout. Absent: pronater drift, facial droop, speech deficit - Skin Skin exam: Present: dry, intact, pallor, warm Internal Medicine: Result - Labs CBC & Chem 7: 10/18/16 03:19 10/18/16 03:19 Labs: Short CBC 10/17/16 10/18/16 Range/Units 18:51 03:19 WBC 9.4 (4.3-11.1) K/mcL Hgb 11.8 L 10.6 L (12.9-16.9) g/dL Hct 35.1 L 31.6 L (37.5-50.1) % Plt Count 280 (140-400) K/mcL Neutrophils # 7.4 (1.6-8.9) K/mcL BMP 10/18/16 03:19 Sodium 131 L Potassium 3.7 Chloride 95 L Carbon Dioxide 28 BUN 8 Creatinine 0.63 L Glucose 92 Calcium 8.6 - ABG Interpretation ABG results: PT/INR, D-dimer PT 12.8 Seconds (9.4-12.1) H 10/18/16 03:19 Consult Discharge Plan - Plan Instructions: Rectal Bleeding (ED)
--- NOTE | 2016-10-18 14:47 | Gastroenterology Consult Note ---
<Clem Menezes - Last Filed: 10/18/16 14:44> Date of Encounter: 10/18/16 Time of Encounter: 11:30 - Assessment and plan (1) GI bleed Current Visit: Yes Status: Acute Assessment and plan: Pt with BRBPR. Plan for colonoscopy tomorrow. Clear liquid diet today, no red or purple. NPO at midnight. If unable tolerate NuLytely please use MiraLAX prep. If not clear by 6 AM, give 2 tap water enemas. Qualifiers: GI bleed type/associated pathology: unspecified gastrointestinal hemorrhage type Qualified Code(s): K92.2 - Gastrointestinal hemorrhage, unspecified (2) Sigmoid thickening Current Visit: Yes Status: Acute Assessment and plan: CT of the abdomen showed a severe mucosal thickening of the distal sigmoid colon which may represent an underlying mass, advanced diverticulosis, acute diverticulitis cannot be excluded but less likely, interval repair of AAA. (3) Unintentional weight loss Current Visit: Yes Status: Acute Assessment and plan: Pt has had an unintentional weight loss of 20 lbs since June. Plan for colonoscopy tomorrow. (4) Chronic anticoagulation Current Visit: Yes Status: Chronic Assessment and plan: Pt on Plavix and ASA due to drug-eluting stent inserted 10/01/2016. (5) COPD (chronic obstructive pulmonary disease) Current Visit: No Status: Chronic Assessment and plan: management per primary team. Qualifiers: COPD type: emphysema Emphysema type: unspecified Qualified Code(s): J43.9 - Emphysema, unspecified - Time Spent With Patient Total time spent is greater than 50% in coordination of care (as documented) at patient's floor/unit and/or counseling patient: GI History of Present Illness - Data of Consult Patient: new to practice Consult date: 10/18/16 Requesting Physician: Lisa Hardin - Consult Narrative Reason for consult: GI Bleed History of present illness: Mr. Simms is a 75 year old male with PMHx of drug-eluting cardiac stent placed on 10/01/2016, COPD, AAA s/p repair, CAD presented to the ED with c/o bloody diarrhea. He denies melena. He reports occasional lightheadedness usually associated with change in position ever since his discharge from the NE and cardiac catheter. Patient denies any headaches, chest pain, palpitations, nausea, or vomiting. FOBT was positive on 10/17, GI panel negative. Hgb 12.5 on admission and 10.[address] of the abdomen showed a severe mucosal thickening of the distal sigmoid colon which may represent an underlying mass, advanced diverticulosis, acute diverticulitis cannot be excluded but less likely, interval repair of AAA. Pt's states he has had an unintentional weight loss of about 20 lbs since June. Procedures: None NSAIDs: ASA Anticoagulation: None Past Med Surg Social Fam HX - Past Medical History Medical history: aortic aneurysm, COPD, coronary artery disease, hypertension, myocardial infarction Psychiatric history: no psych history - Past Surgical History Surgical History: angioplasty/stent, vascular surgery, other - Social History Smoking Status: Former smoker (40 pack year history) Smokeless Tobacco Status: No Alcohol use: none Drug use: none - Family History Mother Living Status: Age at : 60 Hx Family Cardiac Disorders: Yes Father Living Status: Age at : 76 Hx Family Respiratory Disorders: Yes - Gastrointestinal Gastrointestinal: Present: as per HPI - Constitutional Constitutional: as per HPI - EENT Eyes: as per HPI Ears: Present: as per HPI Nose, mouth and throat: Present: as per HPI - Cardiovascular Cardiovascular ROS: Present: as per HPI - Respiratory Respiratory IM: Present: as per HPI - Genitourinary Genitourinary: Absent: change in color, Urinary frequency - Neurological ROS Neurological GI: Present: as per HPI - Hematologic/Lymphatic Hematologic/Lymphatic pediatric: Present: as per HPI - Musculoskeletal Musculoskeletal ROS GI: Present: as per HPI - Integumentary Integumentary GI: Present: as per HPI - Psychiatric ROS Psychiatric GI: Present: as per HPI - Endocrine Endocrine IM: Present: as per HPI - Constitutional Vitals: Temp Pulse Resp BP Pulse Ox 98.2 F 64 16 147/83 98 10/18/16 11:14 10/18/16 11:14 10/18/16 11:28 10/18/16 11:14 10/18/16 11:28 General appearance: Present: cooperative, A&O X 3, no acute distress, answers questions appropriately - Head Head exam: Present: atraumatic, normocephalic - Eye Eye exam: Present: normal appearance, sclera anicteric - ENT ENT exam: Present: mucous membranes dry - Neck Neck exam general surgery: Present: normal inspection, trachea midline - Respiratory Respiratory exam: Present: CTAB. Absent: rales, rhonchi - Cardiovascular Cardiovascular exam: Present: RRR, +S1, +S2 - GI/Abdominal GI/Abdominal exam: Present: soft, tenderness (LLQ), no peritoneal signs. Absent : distended, firm, guarding - Rectal Rectal exam: Present: deferred - Extremities Exam Extremities exam: Present: warm - Neurological Exam Neurological exam: Present: no focal deficits - Psychiatric Psychiatric exam: Present: normal affect, normal mood - Skin Skin exam: Present: dry, intact, normal color, warm Results - Labs CBC & Chem 7: 10/18/16 03:19 10/18/16 03:19 Labs: Last Result Calcium 8.6 mg/dL (8.6-10.8) 10/18/16 03:19 Troponin I 0.02 ng/mL (0-0.03) 10/17/16 14:06 Stool Occult Blood Positive (Negative) A 10/17/16 13:20 Entire Visit Hgb 10.6 g/dL (12.9-16.9) L 10/18/16 03:19 Hct 31.6 % (37.5-50.1) L 10/18/16 03:19 PT 12.8 Seconds (9.4-12.1) H 10/18/16 03:19 - ABG ABG results: PT/INR, D-dimer PT 12.8 Seconds (9.4-12.1) H 10/18/16 03:19 Consult Discharge Plan - Plan Instructions: Rectal Bleeding (ED) Referrals: Heath,Mauro Hardin MD [Primary Care Provider] - <Magnolia Jo - Last Filed: 10/18/16 20:58> Time of Encounter: 15:00 - Time Spent With Patient Total time spent is greater than 50% in coordination of care (as documented) at patient's floor/unit and/or counseling patient: GI History of Present Illness - Data of Consult Requesting Physician: Lisa Hardin - Consult Narrative History of present illness: Mr. Simms is a 75 year old male - Constitutional Vitals: Temp Pulse Resp BP Pulse Ox 97.5 F L 63 16 158/76 99 10/18/16 19:40 10/18/16 19:40 10/18/16 19:40 10/18/16 19:40 10/18/16 19:40 Results - Labs CBC & Chem 7: 10/18/16 14:43 10/18/16 03:19 Labs: Last Result Calcium 8.6 mg/dL (8.6-10.8) 10/18/16 03:19 Troponin I 0.02 ng/mL (0-0.03) 10/17/16 14:06 Stool Occult Blood Positive (Negative) A 10/17/16 13:20 Entire Visit Hgb 10.9 g/dL (12.9-16.9) L 10/18/16 14:43 Hct 32.1 % (37.5-50.1) L 10/18/16 14:43 PT 12.8 Seconds (9.4-12.1) H 10/18/16 03:19 - ABG ABG results: PT/INR, D-dimer PT 12.8 Seconds (9.4-12.1) H 10/18/16 03:19 - Attending Attestation I examined this patient and my medical decision-making was reviewed with the PANTOGRAPH II ENGRAVER/PA/Advanced Practice Nurse/Resident Physician. I agree with the documented findings, disposition and treatment plan as described except to the extent set forth below. CT reviewed with radiologist. Concern is for sigmoid mass
[2016-10-18 14:58] LABS: Hematocrit 32.1 % (37.5-50.1); Hemoglobin 10.9 g/dL (12.9-16.9)
[2016-10-18] MEDS ORDERED: SODIUM CHLORIDE/NAHCO3/KCL/PEG 4,000 ML SOLN.RECON PO ONE (17:00)
[2016-10-19 03:49] LABS: Basophils # 0.1 K/mcL (0.0-0.2); Basophils % 0.3 %; Eosinophils # 0.1 K/mcL (0.0-0.6); Eosinophils % 0.9 %; Hematocrit 33.7 % (37.5-50.1); Hemoglobin 11.6 g/dL (12.9-16.9); Immature Granulocytes % 0.8 % (0-4); Lymphocytes # 1.1 K/mcL (0.6-4.6); Lymphocytes % 7.3 %; Mean Corpuscular HGB Conc 34.4 g/dL (31.6-35.5); Mean Corpuscular Volume 81.2 fL (83.0-100.0); Mean Platelet Volume 8.7 fL (9.4-12.4); Monocytes # 0.7 K/mcL (0.0-1.3); Monocytes % 4.8 %; Neutrophils # 12.9 K/mcL (1.6-8.9); Platelet Count 262 K/mcL (140-400); Red Blood Count 4.15 M/mcL (4.19-5.50); Red Cell Distribution Width 13.7 % (11.5-14.5); Segmented Neutrophils % 85.9 %
[2016-10-19 04:03] LABS: BUN/Creatinine Ratio 9 (6-26); Blood Urea Nitrogen 5 mg/dL (8-26); Calcium 8.6 mg/dL (8.6-10.8); Carbon Dioxide 24 mEq/L (19-29); Chloride 95 mEq/L (98-109); Glucose 102 mg/dL (70-99); Osmolality,Calculated 261 (280-300); Potassium 3.8 mEq/L (3.5-4.5); Sodium 127 mEq/L (136-145); eGFR For African Americans > 60 (> 60); eGFR For Non-African Americans > 60 (> 60)
[2016-10-19] MEDS: Ipratropium/Albuterol Neb 3 ML IH SCH ×4 (04:27→22:09)
[2016-10-19] MEDS: 0.9 % Sodium Chloride 1,000 ML IVC SCH ×3 (06:42→22:25)
[2016-10-19] MEDS: Finasteride 5 MG TABLET PO SCH (07:54)
[2016-10-19] MEDS: MetroNIDAZOLE 500 MG/100 ML 500 MG/100 ML BAG IVPB SCH ×3 (07:54→23:57)
--- NOTE | 2016-10-19 08:17 | Electrocardiograph Report ---
[address] [place] [address] Test Date: 2016-10-17 Pat Name: Duong Simms Department: [id number] Room: 3B13 Gender: M Pharmacy Grad Intern: CARSON : 1940 Requested By: Dulce See Order Number: [id number] Reading MD: Estiven Cox MD Measurements Intervals [place] Rate: 63 P: 73 WA: 158 QRS: 61 QRSD: 105 T: 108 QT: 388 QTc: 395 Interpretive Statements SINUS RHYTHM SEPTAL MYOCARDIAL INFARCTION, OF INDETERMINATE AGE ANTEROLATERAL ISCHEMIA Electronically Signed On 10-19-2016 8:15:19 EDT by Estiven Cox MD
[2016-10-19] MEDS: Budesonide/Formoterol 80/4.5 MDI IH SCH ×3 (08:38→22:09)
[2016-10-19] MEDS ORDERED: *HR* LORazepam 2 MG/ML VIAL IVP ONE (10:42)
--- NOTE | 2016-10-19 11:52 | Anesthesia Evaluation PreOp ---
Date of Encounter: 10/19/16 Time of Encounter: 11:50 - Past History Planned Operation: Colonoscopy Cardiac History: IL, HTN (maintained on Coreg, Cozaar), Hyperlipidemia ( maintained on Atorvastatin), Cardiac Stent (Stent x 1 @ [facility] approximately 2 weeks ago s/p IL. Maintained on ASA, Plavix), Other (AAA s/p Repair) Pulmonary History: Smoker (40 pk/yrs Hx), COPD (maintained on DuoNebs, Albuterol , Symbicort) SKIRT CLIPPER History: Denies Any Significant HX Other Medical History: Other (GIB this hospitalization - bloody diarrhea. ?? Sigmoid colon Mass??. BPH - maintained on Finasteride) Anesthesia History: No Prior Anesthetic Complications, Past Anesthesia ( vascular surgery) Alcohol Use: none Drug use: none Medications and Allergies Albuterol Sulfate [Ventolin Hfa] 2 puff IH Q4H PRN 10/01/16 [History] Finasteride [Proscar] 5 mg PO DAILY 10/01/16 [History] Fluticasone/Salmeterol [Advair 250-50 Diskus] 1 puff IH BID 10/01/16 [History] Hydrochlorothiazide 12.5 mg PO DAILY 10/01/16 [History] Aspirin 81 mg PO DAILY #30 tab.chew 10/02/16 [Rx] Atorvastatin [Lipitor] 80 mg PO HS #60 tablet 10/02/16 [Rx] Carvedilol [Coreg] 6.25 mg PO BIDWM #60 tablet 10/02/16 [Rx] Clopidogrel [Plavix] 75 mg PO DAILY #30 tablet 10/02/16 [Rx] Ipratropium/Albuterol Neb [Duoneb] 3 ml IH QIDR PRN #60 inhsol 10/02/16 [Rx] Losartan Potassium [Cozaar] 50 mg PO DAILY #0 10/02/16 [Rx] Nitroglycerin 0.4 mg SL Q5MIN PRN #30 tab.subl 10/02/16 [Rx] Allergies No Known Allergies Allergy (Verified 10/17/16 13:45) - Meds/Allergy Pre-op Review Medications Reviewed: Yes Allergies Reviewed: Yes Beta Blockers on Current Med List: Yes (Coreg) If Beta Blockers taken, Date/Time (Last Dose taken): 10/19/16 @ 0754 Anesthesia Results - Labs 10/19/16 03:41 10/19/16 03:41 Laboratory Results Impressions Abdomen/Pelvis CT 10/17/16 14:13 IMPRESSION: 1. Severe mucosal thickening at the distal sigmoid colon may represent an underlying mass. Correlation with colonoscopy is recommended. 2. Advanced diverticulosis. Site of mucosal thickening is not adjacent to a large number of diverticuli, and there is no inflammation in the adjacent fat. Acute diverticulitis cannot be excluded but would be considered less likely. 3. No associated lymphadenopathy. 4. Interval repair of AAA. 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 D/ / Kannan Hameed MD / Kannan Hameed MD Interpreting Provider: Kannan Hameed MD Chest X-Ray 10/17/16 14:13 IMPRESSION: Emphysema and unchanged right upper lobe opacity with morphology favoring scar. Bibasilar atelectasis or scarring. D/ / Sanket Fonseca MD / Sanket Fonseca MD Interpreting Provider: Sanket Fonseca MD Laboratory Tests 10/01/16 10/17/16 10/18/16 05:51 13:20 03:19 PT 12.8 H INR 1.2 APTT 28.4 Est GFR (Non-Af Amer) POC Glucose B-Natriuretic Peptide 550 H Stool Occult Blood Positive A 10/19/16 10/19/16 03:41 06:10 PT INR APTT Est GFR (Non-Af Amer) > 60 POC Glucose 114 H B-Natriuretic Peptide Stool Occult Blood Anesthesia Exam Vital Signs Temp Pulse Resp BP Pulse Ox 10/19/16 10:52 97.5 F L 70 18 145/70 98 10/19/16 10:01 12 98 10/19/16 07:59 100 10/19/16 06:56 97.7 F 67 17 129/68 100 10/19/16 04:27 18 96 10/19/16 03:53 97.5 F L 73 15 146/80 100 10/19/16 00:21 97.5 F L 68 13 157/72 95 03/27/17 22:41 22 98 10/18/16 20:04 95 10/18/16 19:40 97.5 F L 63 16 158/76 99 10/18/16 16:28 16 97 10/18/16 15:24 98.0 F 65 16 148/79 96 Intake and Output 10/18/16 10/19/16 10/19/16 23:59 07:59 15:59 Intake Total 1860 / 1860 1300 / 1300 Balance 1860 / 1860 1300 / 1300 Intake: IV Fluids 1500 / 1500 1300 / 1300 0.9 % Sodium Chloride 1, 1000 / 1000 1000 / 1000 000 ML @ 100 mls/hr IVC . Q10H ASHWINI Rx#:[id number] Cipro 400 MG/200 ML 400 400 / 400 200 / 200 mg In 200 ml @ 200 mls/hr IVPB Q12HR ASHWINI Rx#: [id number] Flagyl 500 MG/100 ML 500 100 / 100 100 / 100 mg In 100 ml @ 100 mls/hr IVPB Q8HR ASHWINI Rx#: [id number] Oral 360 / 360 Other: Meal Dinner NPO for breakfast Stool Size Small Large Stool Consistency liquid liquid Stool Color Brown Brown Yellow # Bowel Movements 1 Blood Glucose* 114 Height: 5'11" Weight: 143# BMI = 20 NPO (# of Hours): Mnoc - HEENT Pupil (Motor): Pupils equal, EOMI Mallampati: II Teeth: Normal Oral Opening: Greater than 3 - SKIRT CLIPPER LOC: Oriented SKIRT CLIPPER Motor: Normal RUE, Normal LUE, Normal RLE, Normal LLE, Normal Face SKIRT CLIPPER Sensory: Normal: RUE, LUE, RLE, LLE, Face - Cardiac Rhythm: Regular Murmur: Systolic JVD: Yes - Pulmonary Breath Sounds: bilateral Clear (diminshed throughout) Respiratory Effort: Symmetrical Anesthesia Assess/Plan ASA Score: 3 (CAD, COPD,) Anes Supervising Prov Stmt: Pt seen/evaluated, R&B discussed, questions answered and consent obtained. Joseph Newton MD
[2016-10-19] MEDS ORDERED: 0.9 % Sodium Chloride 1,000 ML IVC SCH (12:15)
[2016-10-19] MEDS ORDERED: *HR* Propofol 500 MG/50 ML BOTTLE IVC ONE (13:05)
[2016-10-19] MEDS ORDERED: *HR* Phenylephrine 10 MG/ML VIAL IVC ONE (13:05)
--- NOTE | 2016-10-19 16:59 | General Surgery Consult Note ---
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 I reviewed personally the CT scan images as well as the report and there does not appear to be any signs of mass effect or metastasis to the lung or liver. We will make sure that the patient has a CEA level ordered and the patient will require an MRI of the pelvis. I do think that given his comorbidities and recent NE as well as coronary stent placement requiring Plavix that he will likely benefit from neoadjuvant therapy and not a surgical procedure at this time. Consult oncology and will follow along with you. I spoke to the patient that at least we can potentially order the MRI and have a consultation while he is an inpatient so that we can help expedite his further evaluation and treatment plan. History of Present Illness Consult date: 10/19/16 Reason for consult: other (Rectal bleeding, Recto-sigmoid mass) History of present illness: Patient is a 75-year-old male with a past medical history significant for abdominal aortic aneurysm status post repair, coronary artery disease, and NE who first presented to [facility] secondary to rectal bleeding that has been present since Tuesday (2-3 days ago). The patient states that he has bouts of constipation and has occasionally had blood per rectum particularly with straining that has been bright in color. He recently had an NE and was started on Plavix and aspirin after having had a drug-eluting stent placed. [facility]. Since that time he had started its developed increasing rectal bleeding that has been bright in color. Denies any nausea or vomiting and denies any abdominal pain symptoms. He has never had a colonoscopy in the past and denies any family history of colon cancer. Dr. Russell was consulted and performed a colonoscopy today demonstrating a large nonresectable rectal polyp at the level of the rectosigmoid junction) 20 cm from the anal verge) an approximately 5 cm beyond that a apple core lesion consistent with a colon cancer. Biopsies were performed as well as tattooing around or near the mass and placement of a marking "clip." I am asked to evaluate the patient with regards to the above findings. Past Med Surg Social Fam HX - Past Medical History Medical history: aortic aneurysm, COPD, coronary artery disease, hypertension, myocardial infarction Psychiatric history: no psych history - Past Surgical History Surgical History: angioplasty/stent, vascular surgery (AAA open repair), other - Social History Smoking Status: Former smoker (40 pack year history) Smokeless Tobacco Status: No Alcohol use: none Drug use: none - Family History Mother Living Status: Age at : 60 Hx Family Cardiac Disorders: Yes Father Living Status: Age at : 76 Hx Family Respiratory Disorders: Yes Medications and Allergies Albuterol Sulfate [Ventolin Hfa] 2 puff IH Q4H PRN 10/01/16 [History] Finasteride [Proscar] 5 mg PO DAILY 10/01/16 [History] Fluticasone/Salmeterol [Advair 250-50 Diskus] 1 puff IH BID 10/01/16 [History] Hydrochlorothiazide 12.5 mg PO DAILY 10/01/16 [History] Aspirin 81 mg PO DAILY #30 tab.chew 10/02/16 [Rx] Atorvastatin [Lipitor] 80 mg PO HS #60 tablet 10/02/16 [Rx] Carvedilol [Coreg] 6.25 mg PO BIDWM #60 tablet 10/02/16 [Rx] Clopidogrel [Plavix] 75 mg PO DAILY #30 tablet 10/02/16 [Rx] Ipratropium/Albuterol Neb [Duoneb] 3 ml IH QIDR PRN #60 inhsol 10/02/16 [Rx] Losartan Potassium [Cozaar] 50 mg PO DAILY #0 10/02/16 [Rx] Nitroglycerin 0.4 mg SL Q5MIN PRN #30 tab.subl 10/02/16 [Rx] Allergies No Known Allergies Allergy (Verified 10/17/16 13:45) Review of Systems All systems PM: reviewed and no additional remarkable complaints except as stated All systems PM: A 10-system review of systems was performed and is negative for pertinent findings except as documented above in the HPI. General Surgery Exam Initial Vital Signs Temp Pulse Resp BP Pulse Ox 97.3 F L 67 14 118/72 97 10/17/16 13:42 10/17/16 13:42 10/17/16 13:42 10/17/16 13:42 10/17/16 13:42 - General physical appearance well developed, well nourished, no distress - Eyes PERRL, normal ocular movement - Neck no masses, trachea midline, no lymphadectomy - Respiratory normal expansion, normal respiratory effort, other (Decreased breath sounds at the bases) - Cardiovascular Cardiovascular exam: Present: RRR, no murmurs/rubs/gallops - Abdomen Abdomen general surgery: Present: bowel sounds present, soft, non tender (No masses palpated) - Incision Incision: Present: intact (Noted incisional hernia (present for several years).) - Integumentary Integumentary general surgery: Present: warm and dry - Neurologic Present: CN 2-12 grossly intact - Musculoskeletal Present: other (No clubbing, cyanosis, or edema) Exam Initial Vital Signs Temp Pulse Resp BP Pulse Ox 97.3 F L 67 14 118/72 97 10/17/16 13:42 10/17/16 13:42 10/17/16 13:42 10/17/16 13:42 10/17/16 13:42 - Psychiatric oriented to time, oriented to person, oriented to place Results - Labs 10/19/16 03:41 10/19/16 03:41 Abnormal lab results WBC 15.0 K/mcL (4.3-11.1) H D 10/19/16 03:41 RBC 4.15 M/mcL (4.19-5.50) L 10/19/16 03:41 Hgb 11.6 g/dL (12.9-16.9) L 10/19/16 03:41 Hct 33.7 % (37.5-50.1) L 10/19/16 03:41 MCV 81.2 fL (83.0-100.0) L 10/19/16 03:41 MPV 8.7 fL (9.4-12.4) L 10/19/16 03:41 Neutrophils # 12.9 K/mcL (1.6-8.9) H 10/19/16 03:41 PT 12.8 Seconds (9.4-12.1) H 10/18/16 03:19 Sodium 127 mEq/L (136-145) L 10/19/16 03:41 Chloride 95 mEq/L (98-109) L 10/19/16 03:41 BUN 5 mg/dL (8-26) L 10/19/16 03:41 Creatinine 0.58 mg/dL (0.72-1.25) L 10/19/16 03:41 Glucose 102 mg/dL (70-99) H 10/19/16 03:41 POC Glucose 114 (58-89) H 10/19/16 06:10 Calculated Osmolality 261 (280-300) L 10/19/16 03:41 Stool Occult Blood Positive (Negative) A 10/17/16 13:20 Diabetes panel 10/19/16 Range/Units 03:41 Sodium 127 L (136-145) mEq/L Potassium 3.8 (3.5-4.5) mEq/L Chloride 95 L (98-109) mEq/L Carbon Dioxide 24 (19-29) mEq/L BUN 5 L (8-26) mg/dL Creatinine 0.58 L (0.72-1.25) mg/dL Glucose 102 H (70-99) mg/dL Calcium 8.6 (8.6-10.8) mg/dL Calcium panel 10/19/16 Range/Units 03:41 Calcium 8.6 (8.6-10.8) mg/dL Pituitary panel 10/19/16 Range/Units 03:41 Sodium 127 L (136-145) mEq/L Potassium 3.8 (3.5-4.5) mEq/L Chloride 95 L (98-109) mEq/L Carbon Dioxide 24 (19-29) mEq/L BUN 5 L (8-26) mg/dL Creatinine 0.58 L (0.72-1.25) mg/dL Glucose 102 H (70-99) mg/dL Calcium 8.6 (8.6-10.8) mg/dL Adrenal panel 10/19/16 Range/Units 03:41 Sodium 127 L (136-145) mEq/L Potassium 3.8 (3.5-4.5) mEq/L Chloride 95 L (98-109) mEq/L Carbon Dioxide 24 (19-29) mEq/L BUN 5 L (8-26) mg/dL Creatinine 0.58 L (0.72-1.25) mg/dL Glucose 102 H (70-99) mg/dL Calcium 8.6 (8.6-10.8) mg/dL All other labs normal. - Imaging CT scan - chest: report reviewed, image reviewed (Intensive COPD. No lung masses identified.) CT scan - pelvis: report reviewed, image reviewed (No free air or free fluid. On secondary review there appears to be a mass in the rectosigmoid junction consistent with this colonoscopy findings. No visualized lymphadenopathy present but difficult to characterize.) Consult Discharge Plan - Plan Instructions: Rectal Bleeding (ED) Referrals: Mauro Joe MD [Primary Care Provider] - 10/27/16 9:30 am
--- NOTE | 2016-10-19 17:05 | Internal Med Progress Note ---
Date of Encounter: 10/19/16 Time of Encounter: 09:30 - Assessment and plan (1) GI bleed Current Visit: Yes Status: Acute Assessment and plan: Pt has not had any bleeding and has had diarrhea due to bowel prep. He denies n/ v or abd pain. Pt had colonoscopy today which revealed 2 masses in the large intestine. Both have been sent to pathology for biopsy. Qualifiers: GI bleed type/associated pathology: unspecified gastrointestinal hemorrhage type Qualified Code(s): K92.2 - Gastrointestinal hemorrhage, unspecified (2) Sigmoid thickening Current Visit: Yes Status: Acute Assessment and plan: Pt has two masses, one partially obstructing in the sigmoid colon, a few centirmeters above a proximal rectal mass. There was no bleeding. Specimens from both masses were sent to pathology. Pt also had multiple medicu-mouthed diverticula in the sigmoid colon. Will continue plan and per primary RN, surgeon will be here tomorrow to speak with pt and . Monitor labs Monitor vital signs Monitor for bleeding ITS Impressions Abdomen/Pelvis CT 10/17/16 14:13 IMPRESSION: 1. Severe mucosal thickening at the distal sigmoid colon may represent an underlying mass. Correlation with colonoscopy is recommended. 2. Advanced diverticulosis. Site of mucosal thickening is not adjacent to a large number of diverticuli, and there is no inflammation in the adjacent fat. Acute diverticulitis cannot be excluded but would be considered less likely. 3. No associated lymphadenopathy. 4. Interval repair of AAA. 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 D/ / Kannan Hameed MD / Kannan Hameed MD Interpreting Provider: Kannan Hameed MD (3) Unintentional weight loss Current Visit: Yes Status: Acute Assessment and plan: Pt has had 20lb weight loss since June. Will consult nutrition for supplementation. (4) Chronic anticoagulation Current Visit: Yes Status: Chronic Assessment and plan: Pt is already on Plavix and ASA due to stent placed earlier this month, 10/01. Pt also has been getting up and walking in his room. (5) COPD (chronic obstructive pulmonary disease) Current Visit: Yes Status: Chronic Assessment and plan: Chronic. Pt was very SOB today after minimal exertion in his room. states that she was helping pt get his bet straightened out and he became anxious and SOB. He was in distress during exam and could only speak in single words. He was anxious and repeated that he needed his oxygen checked and that would help him. He was given an albuterol treatment and Ativan 0.5mg IV after discussing the option with him, he agreed. pt was calmer later per primary RN and was able to relax some. Albuterol neb q2h prn Ativan 0.5mg IV x 1 prn anxiety Continue 02 via n/c Duoneb q3 hours Telemetry Qualifiers: COPD type: emphysema Emphysema type: unspecified Qualified Code(s): J43.9 - Emphysema, unspecified - Time Spent With Patient less than 15 minutes - Subjective Interval history: Patient was seen sitting up on side of bed. Patient is very short of breath lungs are clear, he is wearing oxygen by nasal cannula and states he needs his oxygen checked. His is at bedside says that she try to help him get his bed straightened and he became very anxious and increasingly short of breath. Patient only speaks in short phrases. I ordered a when necessary Albuterol nebulizer treatments and IV Ativan. Patient states that he wears oxygen all the time. He denies abdominal pain, states that he has had diarrhea due to bowel prep treatment for colonoscopy today. He denies bright red blood or dark tarry stool. - Constitutional Vitals: Temp Pulse Resp BP Pulse Ox 97.5 F L 66 16 158/78 99 10/19/16 15:05 10/19/16 15:04 10/19/16 15:04 10/19/16 15:04 10/19/16 15:05 General appearance: Present: cooperative, A&O X 3, pleasant, severe distress, answers questions appropriately - Head Head exam: Present: normal inspection - Eye Eye exam: Present: normal appearance, conjuntiva pink - ENT ENT exam: Present: mucous membranes moist, normal exam, normal external ear exam - Neck Neck exam general surgery: Present: normal inspection. Absent: lymphadenopathy , tenderness - Respiratory Respiratory exam: Present: decreased breath sounds, respiratory distress. Absent: chest wall tenderness, rhonchi, stridor, wheezes - Cardiovascular Cardiovascular exam: Present: RRR, +S1, +S2. Absent: diastolic murmur, systolic murmur - GI/Abdominal GI/Abdominal exam: Present: normal bowel sounds, soft. Absent: hepatomegaly, tenderness - Extremities Exam Extremities exam: Present: joint swelling, normal capillary refill, warm, radial pulses palpable and symetrical. Absent: mottling, pedal edema, tenderness Internal Medicine: Result - Labs CBC & Chem 7: 10/19/16 03:41 10/19/16 03:41 Labs: Short CBC 10/19/16 Range/Units 03:41 WBC 15.0 H D (4.3-11.1) K/mcL Hgb 11.6 L (12.9-16.9) g/dL Hct 33.7 L (37.5-50.1) % Plt Count 262 (140-400) K/mcL Neutrophils # 12.9 H (1.6-8.9) K/mcL BMP 10/19/16 03:41 Sodium 127 L Potassium 3.8 Chloride 95 L Carbon Dioxide 24 BUN 5 L Creatinine 0.58 L Glucose 102 H Calcium 8.6 - ABG Interpretation ABG results: PT/INR, D-dimer PT 12.8 Seconds (9.4-12.1) H 10/18/16 03:19 Consult Discharge Plan - Plan Instructions: Rectal Bleeding (ED) Referrals: Heath,Mauro Hardin MD [Primary Care Provider] - 10/27/16 9:30 am
[2016-10-20] MEDS: Ipratropium/Albuterol Neb 3 ML IH SCH ×3 (04:12→16:39)
[2016-10-20 04:22] LABS: Basophils % 0.3 %; Eosinophils # 0.2 K/mcL (0.0-0.6); Eosinophils % 1.9 %; Hematocrit 30.3 % (37.5-50.1); Hemoglobin 10.4 g/dL (12.9-16.9); Immature Granulocytes % 0.9 % (0-4); Lymphocytes # 0.9 K/mcL (0.6-4.6); Lymphocytes % 10.3 %; Mean Corpuscular HGB Conc 34.3 g/dL (31.6-35.5); Mean Corpuscular Hemoglobin 27.8 pg (28.0-33.3); Monocytes # 0.5 K/mcL (0.0-1.3); Neutrophils # 7.4 K/mcL (1.6-8.9); Platelet Count 253 K/mcL (140-400); Red Blood Count 3.74 M/mcL (4.19-5.50); Red Cell Distribution Width 13.7 % (11.5-14.5); Segmented Neutrophils % 81.6 %
[2016-10-20 04:39] LABS: BUN/Creatinine Ratio 9 (6-26); Calcium 8.3 mg/dL (8.6-10.8); Carbon Dioxide 28 mEq/L (19-29); Chloride 100 mEq/L (98-109); Glucose 94 mg/dL (70-99); Osmolality,Calculated 273 (280-300); Potassium 3.4 mEq/L (3.5-4.5); Sodium 133 mEq/L (136-145); eGFR For African Americans > 60 (> 60); eGFR For Non-African Americans > 60 (> 60)
[2016-10-20 04:40] LABS: Blood Urea Nitrogen 5 mg/dL (8-26)
[2016-10-20] MEDS: MetroNIDAZOLE 500 MG/100 ML 500 MG/100 ML BAG IVPB SCH ×2 (07:39→18:13)
[2016-10-20] MEDS: Finasteride 5 MG TABLET PO SCH (07:40)
--- NOTE | 2016-10-20 08:58 | Oncology Inp Consult Note ---
Date of Encounter: 10/20/16 Time of Encounter: 08:56 - Data of Consult Patient: new to practice Consult date: 10/20/16 Requesting Physician: Ewa Conner CNP Primary Care Provider: Mauro Joe MD - Consult Narrative Reason for consult: Colorectal cancer History of present illness: Mr. Simms is a 75 year old seen in consultation for suspicious rectosigmoid/ rectal mass which is malignant until proven otherwise. Patient was recently hospital as well as acute non-STEMI after presenting which has been complaints on 10/01/16. His cardiac catheter which showed 99 % proximal LAD stenosis with an LVEF of 30 % and had PTCA plus drug-eluting stent placement following which he was discharged dual antiplatelet therapy. Unfortunately, he represented with rectal bleeding on 10/17/16 and had an abdomen CT on admission which showed severe mucosal thickening in the distal sigmoid colon suspicious for underlying mass. No associated adenopathy identified. Colonoscopy 10/18/[address] Jo showed a mass in the proximal rectum and an additional large, fungating, ulcerated, partially obstructing mass in the rectosigmoid area a few centimeters above the rectal mass. Biopsies have been obtained for both and pathology is pending. Of note is that he had noncontrast chest CT on 10/01/16 during hospitalization for acute WA which showed patchy reticulonodular opacities in the right middle and upper lobes compatible with infectious/inflammatory etiology. He has been evaluated by Dr. Fallon and surgery is not advisable at this time given his recent acute WA and need for dual antiplatelet therapy for next several months due to his drug-eluting stent. Dr. Fallon was kind enough to discuss patient's case with me and has requested oncology opinion regarding non-operative management given his current medical situation. He is scheduled for a pelvic MRI later today for further disease staging. Patient was seen and examined at bedside with his (Sherie) present at the time of evaluation. He is doing quite well and is in fairly good spirits considering the circumstances. He is not having any symptoms attributable to his underlying rectal cancer. He reports that rectal bleeding has essentially resolved following his recent colonoscopy. I reviewed his chart for details of his ongoing care by the hospital team. He is underlying medical comorbidities including COPD, BPH, hypertension managed by his PCP. He COPD is associated with underlying hypoxemic respiratory failure and is continuously oxygen dependent. In spite of above, he reports that he maintain fairly good physical activity level prior to the onset of his present symptoms on 10/01/16. He was able to participate in 1 mile walks several times a week with his and carry her jewel diameter gauger. He is scheduled for cardiac rehabilitation in the near future and I count of his recent WA and both patient and his are very particular about completing as much of his cardiac rehabilitation as possible to improve his cardiac function. Rest of past medical, surgical, family, social history detailed below and verified with patient today. Review of systems: 12 point review of systems performed with patient and positive findings noted in history of present illness. All other systems are negative: Physical exam: Vital Signs Temp 97.9 F 10/20/16 07:12 Pulse 77 10/20/16 07:12 Resp 16 10/20/16 07:12 BP 142/67 10/20/16 07:12 Pulse Ox 100 10/20/16 07:12 GENERAL: Alert and oriented, comfortable appearing. Mental Status: Affect appropriate for circumstances HEENT: Sclerae anicteric. No mucositis or thrush. No other oral or pharyngeal lesions or erythema. Skin: No rashes or petechiae. No evidence of skin malignancy Lymph nodes: No cervical, supraclavicular, axillary, or inguinal adenopathy. Lungs: Clear to auscultation bilaterally. Clear to percussion bilaterally. Cardiovascular: Regular rate and rhythm. No gallops, murmurs, or rubs. Abdomen: Soft, nontender; No organomegaly or masses palpable. Extremities: No edema. No calf swelling or tenderness. No joint deformity. Neurologic: Alert, normal gait; no focal weakness or sensory abnormalities. Results: Laboratory Last Values WBC 9.1 K/mcL (4.3-11.1) 10/20/16 03:21 RBC 3.74 M/mcL (4.19-5.50) L 10/20/16 03:21 Hgb 10.4 g/dL (12.9-16.9) L 10/20/16 03:21 Hct 30.3 % (37.5-50.1) L 10/20/16 03:21 MCV 81.0 fL (83.0-100.0) L 10/20/16 03:21 MCH 27.8 pg (28.0-33.3) L 10/20/16 03:21 MCHC 34.3 g/dL (31.6-35.5) 10/20/16 03:21 RDW 13.7 % (11.5-14.5) 10/20/16 03:21 Plt Count 253 K/mcL (140-400) 10/20/16 03:21 MPV 9.0 fL (9.4-12.4) L 10/20/16 03:21 Immature Gran % 0.9 % (0-4) 10/20/16 03:21 Seg Neutrophils % 81.6 % 10/20/16 03:21 Lymphocytes % 10.3 % 10/20/16 03:21 Monocytes % 5.0 % 10/20/16 03:21 Eosinophils % 1.9 % 10/20/16 03:21 Basophils % 0.3 % 10/20/16 03:21 Neutrophils # 7.4 K/mcL (1.6-8.9) 10/20/16 03:21 Lymphocytes # 0.9 K/mcL (0.6-4.6) 10/20/16 03:21 Monocytes # 0.5 K/mcL (0.0-1.3) 10/20/16 03:21 Eosinophils # 0.2 K/mcL (0.0-0.6) 10/20/16 03:21 Basophils # 0.0 K/mcL (0.0-0.2) 10/20/16 03:21 PT 12.8 Seconds (9.4-12.1) H 10/18/16 03:19 INR 1.2 10/18/16 03:19 APTT 28.4 Seconds (26.0-36.0) 10/18/16 03:19 Sodium 133 mEq/L (136-145) L 10/20/16 03:21 Potassium 3.4 mEq/L (3.5-4.5) L 10/20/16 03:21 Chloride 100 mEq/L (98-109) 10/20/16 03:21 Carbon Dioxide 28 mEq/L (19-29) 10/20/16 03:21 BUN 5 mg/dL (8-26) L 10/20/16 03:21 Creatinine 0.57 mg/dL (0.72-1.25) L 10/20/16 03:21 Est GFR ( Amer) > 60 (> 60) 10/20/16 03:21 Est GFR (Non-Af Amer) > 60 (> 60) 10/20/16 03:21 BUN/Creatinine Ratio 9 (6-26) 10/20/16 03:21 Glucose 94 mg/dL (70-99) 10/20/16 03:21 POC Glucose 114 (58-89) H 10/19/16 06:10 Calculated Osmolality 273 (280-300) L 10/20/16 03:21 Calcium 8.3 mg/dL (8.6-10.8) L 10/20/16 03:21 Magnesium 1.8 mg/dL (1.6-2.6) 10/17/16 14:06 Troponin I 0.02 ng/mL (0-0.03) 10/17/16 14:06 Stool Occult Blood Positive (Negative) A 10/17/16 13:20 Stl C. cayetanensis PCR Not detected (Not detect) 10/18/16 00:10 Stool Rotavirus A PCR Not detected (Not detect) 10/18/16 00:10 Stl Adenov F 40/41 PCR Not detected (Not detect) 10/18/16 00:10 Stool Astrovirus (PCR) Not detected (Not detect) 10/18/16 00:10 Stool Campylobacter PCR Not detected (Not detect) 10/18/16 00:10 Stl C. diff Tox A/B PCR Not detected (Not detect) 10/18/16 00:10 Stool Cryptosporidium PCR Not detected (Not detect) 10/18/16 00:10 Stl Sh Tox Pr E STEC PCR Not detected (Not detect) 10/18/16 00:10 Stool E coli O157 PCR Not detected (Not detect) 10/18/16 00:10 Stl Enterotoxigenic E PCR Not detected (Not detect) 10/18/16 00:10 Stool EPEC (PCR) Not detected (Not detect) 10/18/16 00:10 Stool EAEC (PCR) Not detected (Not detect) 10/18/16 00:10 Stl E. histolytica PCR Not detected (Not detect) 10/18/16 00:10 Stool Giardia Lamblia PCR Not detected (Not detect) 10/18/16 00:10 Stool Salmonella PCR Not detected (Not detect) 10/18/16 00:10 Stool Sapovirus (PCR) Not detected (Not detect) 10/18/16 00:10 Stl P. shigelloides PCR Not detected (Not detect) 10/18/16 00:10 Stl Shigella/EIEC PCR Not detected (Not detect) 10/18/16 00:10 St Y.enterocolitica PCR Not detected (Not detect) 10/18/16 00:10 Stool Vibrio (PCR) Not detected (Not detect) 10/18/16 00:10 Stl Vibrio cholerae PCR Not detected (Not detect) 10/18/16 00:10 Stl Norovirus GI/GII PCR Not detected (Not detect) 10/18/16 00:10 Stl GI Panel (PCR) Com See below 10/18/16 00:10 Blood Type A POSITIVE 10/17/16 14:06 Antibody Screen NEGATIVE 10/17/16 14:06 Radiographic studies: I personally reviewed and interpreted patient's most recent imaging studies dated 10/01-. I discussed the findings with the patient today. Abdomen/Pelvis CT 10/17/16 14:13 IMPRESSION: 1. Severe mucosal thickening at the distal sigmoid colon may represent an underlying mass. Correlation with colonoscopy is recommended. 2. Advanced diverticulosis. Site of mucosal thickening is not adjacent to a large number of diverticuli, and there is no inflammation in the adjacent fat. Acute diverticulitis cannot be excluded but would be considered less likely. 3. No associated lymphadenopathy. 4. Interval repair of AAA. 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 D/ / Kannan Hameed MD / Kannan Hameed MD Interpreting Provider: Kannan Hameed MD Chest X-Ray 10/17/16 14:13 IMPRESSION: Emphysema and unchanged right upper lobe opacity with morphology favoring scar. Bibasilar atelectasis or scarring. D/ / Sanket Fonseca MD / Sanket Fonseca MD Interpreting Provider: Sanket Fonseca MD Impression/recommendations: Colorectal cancer: I had a detailed discussion with the patient and his today regarding the natural history of what appears to be synchronous primary colorectal cancers. We are going to wait for pathology for definitive confirmation. We discussed NCCN guidelines for management and the importance of definitive station for appropriate treatment recommendation in prognostication. He will be getting a pelvic MRI later this evening to determine his locoregional disease extent. He appears to have a resectable disease but he is clearly medically inoperable at this time on account of his recent WA and need for dual antiplatelet therapy for the next several months. We'll coordinate closely with cardiology for surgical management if needed. We discussed that for his local regionally advanced disease, he will likely require neoadjuvant chemoradiation in any case for disease control. This may be followed by surgery depending on the overall status of his cardiac situation. We will review his case is not tumor conference later this week for definitive treatment recommendations and I will make him an appointment to see me in the office sometime early next week for further recommendations last treatment planning. Coronary artery disease status post recent WA: He is established with cardiology and is scheduled to see Dr. Treadwell in the near future as an outpatient. He is also scheduled to start a cardiac rehabilitation program in the near future. Patient is very keen on following through with his cardiac rehabilitation regimen but both he and his also understand the severity of his colon cancer diagnosis and the importance of addressing his treatment sooner than later. Anemia: Likely due to acute blood loss from his underlying colon malignancy. We'll go ahead and completed an anemia workup to make sure he does not have any hematinic deficiencies etc. that can be easily supplementable since anticipated chemotherapy and radiation may result in worsening of his anemia. No acute interventions of distress incision needed for his current counts I will recommend PRBC transfusion to maintain hemoglobin of 7 or greater. We'll follow the patient along side you during this hospitalization but please do not hesitate to call regarding interval hematologic questions as they arise. Thank you for your excellent ongoing care for allowing us to see him while in- house. This report was created using voice recognition software and may contain errors. It was signed but not edited to expedite communication. Past Med Surg Social Fam HX - Past Medical History Medical history: aortic aneurysm, COPD, coronary artery disease, hypertension, myocardial infarction Psychiatric history: no psych history - Past Surgical History Surgical History: angioplasty/stent, vascular surgery (AAA open repair), other - Social History Smoking Status: Former smoker (40 pack year history) Smokeless Tobacco Status: No Alcohol use: none Drug use: none - Family History Mother Living Status: Age at : 60 Hx Family Cardiac Disorders: Yes Father Living Status: Age at : 76 Hx Family Respiratory Disorders: Yes Medications and Allergies Albuterol Sulfate [Ventolin Hfa] 2 puff IH Q4H PRN 10/01/16 [History] Finasteride [Proscar] 5 mg PO DAILY 10/01/16 [History] Fluticasone/Salmeterol [Advair 250-50 Diskus] 1 puff IH BID 10/01/16 [History] Hydrochlorothiazide 12.5 mg PO DAILY 10/01/16 [History] Aspirin 81 mg PO DAILY #30 tab.chew 10/02/16 [Rx] Atorvastatin [Lipitor] 80 mg PO HS #60 tablet 10/02/16 [Rx] Carvedilol [Coreg] 6.25 mg PO BIDWM #60 tablet 10/02/16 [Rx] Clopidogrel [Plavix] 75 mg PO DAILY #30 tablet 10/02/16 [Rx] Ipratropium/Albuterol Neb [Duoneb] 3 ml IH QIDR PRN #60 inhsol 10/02/16 [Rx] Losartan Potassium [Cozaar] 50 mg PO DAILY #0 10/02/16 [Rx] Nitroglycerin 0.4 mg SL Q5MIN PRN #30 tab.subl 10/02/16 [Rx] Allergies No Known Allergies Allergy (Verified 10/17/16 13:45) Oncology - Exam - Constitutional Vitals: Temp Pulse Resp BP Pulse Ox 97.9 F 77 16 142/67 100 10/20/16 07:12 10/20/16 07:12 10/20/16 07:12 10/20/16 07:12 10/20/16 07:12 Oncology - Results - Labs Labs: Short CBC 10/20/16 Range/Units 03:21 WBC 9.1 (4.3-11.1) K/mcL Hgb 10.4 L (12.9-16.9) g/dL Hct 30.3 L (37.5-50.1) % Plt Count 253 (140-400) K/mcL Neutrophils # 7.4 (1.6-8.9) K/mcL BMP 03/29/17 03:21 Sodium 133 L Potassium 3.4 L Chloride 100 Carbon Dioxide 28 BUN 5 L Creatinine 0.57 L Glucose 94 Calcium 8.3 L Consult Discharge Plan - Plan Instructions: Rectal Bleeding (ED) Referrals: Mauro Joe MD [Primary Care Provider] - 10/27/16 9:30 am
[2016-10-20] MEDS: Budesonide/Formoterol 80/4.5 MDI IH SCH (09:43)
--- NOTE | 2016-10-20 10:39 | Gastroenterology Progress Note ---
Date of Encounter: 10/20/16 Time of Encounter: 10:10 - Assessment and plan (1) GI bleed Current Visit: Yes Status: Acute Assessment and plan: Colonoscopy with 6 cm mass in the proximal rectum. Fungating and ulcerated partially obstructing large mass found in the sigmoid colon just a few centimeters above the proximal rectal mass. Surgery consulted, but pt is not a surgical candidate at this time. Oncology has been consulted as well. 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 Colonoscopy completed 10/19 with 6 cm mass in the proximal rectum, fungating and ulcerated, partially obstructing large mass found in the sigmoid colon just a few centimeters above the proximal rectal mass. Biopsies pending. (3) Unintentional weight loss Current Visit: Yes Status: Acute (4) Chronic anticoagulation Current Visit: Yes Status: Chronic Assessment and plan: Pt on Plavix and ASA due to drug-eluting stent inserted 10/01/2016. Plavix held for colonoscopy. I spoke to Ewa Conner and informed her it was ok to restart Plavix. (5) COPD (chronic obstructive pulmonary disease) Current Visit: Yes Status: Chronic Assessment and plan: Management per primary team. Qualifiers: COPD type: emphysema Emphysema type: unspecified Qualified Code(s): J43.9 - Emphysema, unspecified - Time Spent With Patient Total time spent is greater than 50% in coordination of care (as documented) at patient's floor/unit and/or counseling patient: - Subjective Interval history: Patient sitting on side of bed without acute complaint. Denies abdominal pain, nausea, vomiting. - Constitutional Vitals: Temp Pulse Resp BP Pulse Ox 97.9 F 77 16 142/67 100 10/20/16 07:12 10/20/16 07:12 10/20/16 07:12 10/20/16 07:12 10/20/16 07:12 General appearance: Present: cooperative, A&O X 3, no acute distress, answers questions appropriately - Head Head exam: Present: atraumatic, normocephalic - Eye Eye exam: Present: normal appearance, sclera anicteric - ENT ENT exam: Present: mucous membranes moist - Neck Neck exam general surgery: Present: normal inspection, trachea midline - Respiratory Respiratory exam: Present: decreased breath sounds, CTAB - Cardiovascular Cardiovascular exam: Present: RRR, +S1, +S2 - GI/Abdominal GI/Abdominal exam: Present: soft, no peritoneal signs. Absent: distended, firm , guarding, tenderness - Rectal Rectal exam: Present: deferred - Extremities Exam Extremities exam: Present: warm - Neurological Exam Neurological exam: Present: no focal deficits - Psychiatric Psychiatric exam: Present: normal affect, normal mood - Skin Skin exam: Present: dry, intact, normal color, warm Results - Labs CBC & Chem 7: 10/20/16 03:21 10/20/16 03:21 Labs: Last Result Calcium 8.3 mg/dL (8.6-10.8) L 10/20/16 03:21 Troponin I 0.02 ng/mL (0-0.03) 10/17/16 14:06 Stool Occult Blood Positive (Negative) A 10/17/16 13:20 Entire Visit Hgb 10.4 g/dL (12.9-16.9) L 10/20/16 03:21 Hct 30.3 % (37.5-50.1) L 10/20/16 03:21 PT 12.8 Seconds (9.4-12.1) H 10/18/16 03:19 - ABG ABG results: PT/INR, D-dimer PT 12.8 Seconds (9.4-12.1) H 10/18/16 03:19 Consult Discharge Plan - Plan Instructions: Rectal Bleeding (ED) Referrals: Mauro Joe MD [Primary Care Provider] - 10/27/16 9:30 am
[2016-10-20] MEDS ORDERED: *HR* LORazepam 2 MG/ML VIAL IVP PRN (11:17)
--- NOTE | 2016-10-20 11:55 | General Surgery Progress Note ---
Date of Encounter: 10/20/16 Time of Encounter: 11:45 - Assessment and Plan (1) Rectosigmoid cancer Status: Acute Pathology pending MRI today CEA ordered May have a diet after MRI complete No surgical intervention at this time due to recent [place] and stent placement Oncology following and assessing for neoadjuvant therapy Subjective Patient reports: no new complaints, feels better, voiding w/o difficulty, bowel movement, diarrhea (from bowel prep, no blood noted), afebrile Objective Vital Signs - Last 8 Hours Temp Pulse Resp BP Pulse Ox 10/20/16 10:56 97.6 F 68 18 146/74 95 10/20/16 07:12 97.9 F 77 16 142/67 100 10/20/16 04:44 97.5 F L 79 17 135/70 96 10/20/16 04:12 16 97 Intake and Output 10/19/16 10/20/16 10/20/16 23:59 07:59 15:59 Intake Total 1300 / 1300 800 / 800 Output Total 300 / 300 Balance 1300 / 1300 500 / 500 Intake: IV Fluids 1300 / 1300 100 / 100 0.9 % Sodium Chloride 1, 1000 / 1000 000 ML @ 100 mls/hr IVC . Q10H [facility] Rx#:[id number] Cipro 400 MG/200 ML 400 200 / 200 mg In 200 ml @ 200 mls/hr IVPB Q12HR ASHWINI Rx#: [id number] Flagyl 500 MG/100 ML 500 100 / 100 100 / 100 mg In 100 ml @ 100 mls/hr IVPB Q8HR [facility]WIN[facility] Rx#: [id number] Oral 700 / 700 Output: Urine 300 / 300 Other: Meal NPO for breakfast - General physical appearance well developed, no distress, no pain - Eyes normal ocular movement - ENT normal mucosa, poor senior living, atraumatic, normocephalic - Neck Neck exam: trachea midline - Respiratory normal respiratory effort - Cardiovascular Cardiovascular exam: Present: RRR - Abdomen Abdomen: Present: bowel sounds present, soft, non tender - Integumentary no rash - Neurologic CN 2-12 grossly intact - Musculoskeletal normal gait, normal posture - Psychiatric oriented to time, oriented to person, oriented to place, speech is normal, memory intact - Labs 10/20/16 03:21 10/20/16 03:21 Diabetes panel 10/20/16 Range/Units 03:21 Sodium 133 L (136-145) mEq/L Potassium 3.4 L (3.5-4.5) mEq/L Chloride 100 (98-109) mEq/L Carbon Dioxide 28 (19-29) mEq/L BUN 5 L (8-26) mg/dL Creatinine 0.57 L (0.72-1.25) mg/dL Glucose 94 (70-99) mg/dL Calcium 8.3 L (8.6-10.8) mg/dL Calcium panel 10/20/16 Range/Units 03:21 Calcium 8.3 L (8.6-10.8) mg/dL Pituitary panel 10/20/16 Range/Units 03:21 Sodium 133 L (136-145) mEq/L Potassium 3.4 L (3.5-4.5) mEq/L Chloride 100 (98-109) mEq/L Carbon Dioxide 28 (19-29) mEq/L BUN 5 L (8-26) mg/dL Creatinine 0.57 L (0.72-1.25) mg/dL Glucose 94 (70-99) mg/dL Calcium 8.3 L (8.6-10.8) mg/dL Adrenal panel 10/20/16 Range/Units 03:21 Sodium 133 L (136-145) mEq/L Potassium 3.4 L (3.5-4.5) mEq/L Chloride 100 (98-109) mEq/L Carbon Dioxide 28 (19-29) mEq/L BUN 5 L (8-26) mg/dL Creatinine 0.57 L (0.72-1.25) mg/dL Glucose 94 (70-99) mg/dL Calcium 8.3 L (8.6-10.8) mg/dL Consult Discharge Plan - Plan Instructions: Ciprofloxacin (By mouth), Lorazepam (By mouth), Rectal Bleeding ( ED), Chronic Obstructive Pulmonary Disease (DC) Additional Instructions: Please follow up with your primary care physician Please follow up with Oncology as scheduled. Return to ER for any other problems or concerns, or any new concerning symptoms Take your ativan as needed for anxiety. Take your home medications as normal, including Plavix. Referrals: Mauro Joe MD [Primary Care Provider] - 10/27/16 9:30 am Valerio Whitfield MD [Partnered Physician] - 10/29/16 11:30 am Prescriptions: Ciprofloxacin [Cipro] 500 mg PO BID #14 tablet LORazepam [Ativan] 1 mg PO Q6H PRN #20 tablet PRN Reason: Anxiety - Attending Attestation I examined this patient and my medical decision-making was reviewed with the [employer]/PA/Advanced Practice Nurse/Resident Physician. I agree with the documented findings, disposition and treatment plan as described except to the extent set forth below. Reviewed the above assessment and physical examination with the nurse practitioner present. Patient denies any abdominal pain or nausea vomiting. His abdomen is soft palpation. MRI of the pelvis is pending and once this is performed from the surgical perspective he can be discharged home with follow- up as an outpatient. Discussed with the patient and he agrees with the above plan.
[2016-10-20] MEDS ORDERED: *HR* LORazepam 2 MG/ML VIAL IVP SCH (12:00)
[2016-10-20] MEDS: 0.9 % Sodium Chloride 1,000 ML IVC SCH (14:29)
[2016-10-20] MEDS ORDERED: Water for inj. (sterile) 10 ML IV ONE (15:49)
[2016-10-20 15:58] LABS: Thyroid Stimulating Hormone 1.246 mcIU/mL (0.350-4.840)
--- NOTE | 2016-10-20 18:29 | Discharge Summary ---
Date of Encounter: 10/20/16 Time of Encounter: 09:15 - Discharge Diagnosis (1) Rectosigmoid cancer Priority: Primary Status: Acute Comments: Patient had a colonoscopy that showed a 6 cm mass in the proximal rectum. His a fungating and ulcerated partially obstructing large mass found in the sigmoid colon just a few centimeters above the proximal rectal mass. Dr. Fallon has seen the patient he will continue to follow. He states that patient is ready to go home after her MRI today. He also states that patient is not a surgical candidate at this time due to his ejection fraction. Oncology has been consulted as well and has seen the patient. He is to have an MRI today to continue staging. He will follow up with oncology as scheduled. Patient both are very concerned about his cardiac function prior to chemoradiation. Oncology will continue to follow on an outpatient basis. (2) Unintentional weight loss Priority: Secondary Status: Acute Comments: Patient reports approximately 20 pound weight loss in the last couple of months that was unintentional and most likely due to his colon cancer.. She states that he has no appetite. He is being followed by oncology. (3) Chronic anticoagulation Priority: Secondary Status: Chronic Comments: There was a question about continuing his Plavix in regards to his GI bleed that he had previously. I did speak with Clem Menezes from GI today he states it is okay to restart his Plavix. I will restarted and continue his home medication list. (4) COPD (chronic obstructive pulmonary disease) Priority: Secondary Status: Chronic Comments: Patient was having difficulty breathing and is requiring supplemental oxygenation. He is not having an exacerbation at this time. I feel that he is having anxiety that is causing him to have difficulty breathing. His and I discussed this and they agree. He does wear oxygen at home which he will continue to do. I will give Ativan when necessary. Qualifiers: COPD type: emphysema Emphysema type: unspecified Qualified Code(s): J43.9 - Emphysema, unspecified (5) Chronic respiratory failure Priority: Secondary Status: Chronic Comments: Chronic. Plan as above. Qualifiers: Respiratory failure complication: unspecified whether with hypoxia or hypercapnia Qualified Code(s): J96.10 - Chronic respiratory failure, unspecified whether with hypoxia or hypercapnia (6) GI bleed Priority: Secondary Status: Resolved Comments: This has been resolved. Pt is not having bleeding and will continue Plavix at home as per GI recommendation. Qualifiers: GI bleed type/associated pathology: unspecified gastrointestinal hemorrhage type Qualified Code(s): K92.2 - Gastrointestinal hemorrhage, unspecified - Discharge Medications Prescriptions: LORazepam [Ativan] 1 mg PO Q6H PRN #20 tablet PRN Reason: Anxiety Home Medications: Albuterol Sulfate [Ventolin Hfa] 2 puff IH Q4H PRN 10/01/16 [History] Finasteride [Proscar] 5 mg PO DAILY 10/01/16 [History] Fluticasone/Salmeterol [Advair 250-50 Diskus] 1 puff IH BID 10/01/16 [History] Hydrochlorothiazide 12.5 mg PO DAILY 10/01/16 [History] Aspirin 81 mg PO DAILY #30 tab.chew 10/02/16 [Rx] Atorvastatin [Lipitor] 80 mg PO HS #60 tablet 10/02/16 [Rx] Carvedilol [Coreg] 6.25 mg PO BIDWM #60 tablet 10/02/16 [Rx] Clopidogrel [Plavix] 75 mg PO DAILY #30 tablet 10/02/16 [Rx] Ipratropium/Albuterol Neb [Duoneb] 3 ml IH QIDR PRN #60 inhsol 10/02/16 [Rx] Losartan Potassium [Cozaar] 50 mg PO DAILY #0 10/02/16 [Rx] Nitroglycerin 0.4 mg SL Q5MIN PRN #30 tab.subl 10/02/16 [Rx] Clopidogrel [Plavix] 75 mg PO DAILY tablet 10/20/16 [Rx] LORazepam [Ativan] 1 mg PO Q6H PRN #20 tablet 10/20/16 [Rx] Allergies/Adverse Reactions: Allergies No Known Allergies Allergy (Verified 10/17/16 13:45) Procedures/tests Complete & Pending: Procedures Performed prior 72 hours Category Date Time Status MR pelvis wo/w con [MR] Routine MRI 10/19/16 17:04 Taken Date of admission: 10/17/16 18:38 Primary care physician: Mauro Joe MD Consults: 10/17/16 19:42 Consult to Gastroenterology [CONS] Routine Consulting Provider: Gastroenterology Samantha Reason for Consult: 75M with GI bleed, CT shows severe mucosal thickening at distal sigmoid colon - possible mass Call Completed: No 10/19/16 16:45 Consult to Oncology Hematology [CONS] Stat Consulting Provider: Aram Fallon Reason for Consult: Recto-sigmoid mass. Consistent with cancer. Biopsies obtained. Time Notified: 16:46 Call Completed: Yes 10/19/16 17:20 Consult to Nutrition [CONS] Routine Comment: supplementation.weight loss Consulting Provider: NUTRITION Reason for Dietary Consult: PO Supplementation Discharging clinician: Ewa Conner Anticipated date of discharge: 10/20/16 - Patient Status Disposition: Home, Self-Care Functional capacity at discharge: wheelchair bound Overall status at discharge: patient is not back to baseline - Discharge Instructions Instructions: Rectal Bleeding (ED) Follow Up With: Mauro Joe MD [Primary Care Provider] - 10/27/16 9:30 am Valerio Whitfield MD [Partnered Physician] - 10/29/16 11:30 am Additional Instructions: Please follow up with your primary care physician Please follow up with Oncology as scheduled. Return to ER for any other problems or concerns, or any new concerning symptoms Take your ativan as needed for anxiety. Take your home medications as normal, including Plavix. - Diet and Activity Activity: resume usual activities as tolerated, wear oxygen at all times Diet: advance to your usual diet Hospital course: Mr. Simms is a 75 year old male with a history of COPD he presented to the emergency department with complaint of GI bleeding. Reported one episode of bloody diarrhea the morning he was admitted, October 17. He was started on Plavix 2 weeks ago after cardiac catheter with stent placement for an NE. His guaiac was positive in the ER his hemoglobin has remained stable throughout the visit we did hold his aspirin and Plavix. He was made nothing by mouth. He had a colonoscopy the next day on October [address] Sandoval and showed a mass on the proximal rectum, and an additional large fungating ulcerated partially obstructing mass in the rectosigmoid area a few centimeters above the rectal mass. Biopsies have been obtained and are sent to pathology and are pending. He has been seen by surgery and is not a surgical candidate at this time due to his cardiac function. He is also been seen by oncology who will be following him outpatient. Both patient and his are concerned with cardiac function before starting any chemotherapy or radiation. Patient has COPD and wears oxygen to maintain his sats. He has become anxious during his admission and has had difficulty breathing. This is relieved by an albuterol breathing treatment and IV Ativan. I will send patient home with Ativan 1 mg by mouth every 6 hours when necessary anxiety. Patient had an MRI this evening to confirm staging. Dr. Fallon states that patient is stable to go after MRI. He is eating a meal and his Flagyl is infusing. He is stable for discharge. - Time Spent with Patient Total time spent providing and/or coordinating discharge services: Less than 30 minutes - Constitutional Vitals: Temp Pulse Resp BP Pulse Ox 97.9 F 74 18 159/81 99 10/20/16 14:47 10/20/16 14:47 10/20/16 14:47 10/20/16 14:47 10/20/16 14:47 General appearance: Present: cooperative, A&O X 3, pleasant, severe distress, answers questions appropriately - Head Head exam: Present: normal inspection - Eye Eye exam: Present: normal appearance, conjuntiva pink - ENT ENT exam: Present: mucous membranes moist, normal exam - Neck Neck exam general surgery: Present: full ROM, normal inspection. Absent: lymphadenopathy, tenderness - Respiratory Respiratory exam: Present: decreased breath sounds. Absent: chest wall tenderness, respiratory distress, rhonchi, stridor, wheezes, tachypnea - Cardiovascular Cardiovascular exam: Present: RRR, +S1, +S2. Absent: diastolic murmur, systolic murmur - GI/Abdominal GI/Abdominal exam: Present: normal bowel sounds, soft. Absent: distended, tenderness - Extremities Exam Extremities exam: Present: normal inspection, warm, radial pulses palpable and symetrical. Absent: pedal edema, tenderness - Neurological Exam Neurological exam: Present: alert, oriented X3. Absent: no focal deficits
[2016-10-20 19:02] VITALS: BP 109/67
== END 2016-10-20 19:55 | disposition home or self-care (01) | DRG 375 ==
LOC: 3BNU 13:40 → EMEROO 13:40 → 3BNU 17:56
PROVIDERS: ADMIT Nurse Practitioner Family; ATTEND Registered Nurse